=== PATIENT | female | born 2005 | race Caucasian/White ===

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

== ENCOUNTER 2024-05-24 12:03 | Emergency (ER) | payer OTHER, SELFPAY ==
--- NOTE | ~2024-05-24 | XR_ITS ---
HISTORY: pain, swelling, bruising COMPARISON: None TECHNIQUE: 2 views of the left toe were performed. FINDINGS: Acute avulsion fracture of the proximal phalanx of the fourth toe is present. This fracture extends into the articular surface. Soft tissue swelling is also appreciated. No additional acute fractures are noted. IMPRESSION: Avulsion fracture of the proximal phalanx of the fourth toe extending into the articular surface, as detailed above. Reviewed, dictated and finalized at location A. L GLUE OPERATOR IMPRESSION: Avulsion fracture of the proximal phalanx of the fourth toe extend ing into the articular surface, as detailed above.
--- OUTSIDE RECORDS SUMMARY | 2024-05-24 12:05 | XMS_ITS | Clinical Summary ---
Author Organization [facility] Address [facility] [place] [address] Care Team Providers Care Superintendent General Name Role Phone Ion Escobar MD Primary Care Provider [phone] Allergies No known active allergies Medications ondansetron 4 MG tablet Take 4 mg by mouth every 8 (eight) hours as needed for Nausea. Active Active Problems Estimated Date of Delivery Comme nts Yes 07/10/2021 No known active problems Social History Tobacco Use Types Packs/Day Years Used Date Smoking Tobacco: Never Smokeless Tobacco: Never Alcohol Use Standard Drinks/Week Comments Not Currently 0 (1 standard drink = 0.6 oz pur e alcohol) Estimated Date of Delivery Comme nts Yes 07/10/2021 Sex and Gender Information Value Date Recorded Sex Assigned at Not on file Legal Sex Female 2:45 PM CHAIN PEGGER Gender Identity Not on file Sexual Orientation Not on file Last Filed Vital Signs Vital Sign Reading Time Taken Comments Blood Pressure 110/64 02/17/2021 10:00 PM CHAIN PEGGER Pulse 96 02/17/2021 4:36 PM CHAIN PEGGER Temperature 37 C (98.6 F) 02/17/2021 4:36 PM CHAIN PEGGER Respiratory Rate 15 02/17/2021 10:00 PM CHAIN PEGGER Oxygen Saturation 98% 02/17/2021 10:00 PM CHAIN PEGGER Inhaled Oxygen Concentration - - Weight 53.5 kg (118 lb) 02/17/2021 4:36 PM CHAIN PEGGER Height 157.5 cm (5' 2 ) 02/17/2021 4:36 PM CHAIN PEGGER Body Mass Index 21.58 02/17/2021 4:36 PM CHAIN PEGGER Body Mass Index Percentile 61.00% 02/17/2021 4:3 6 PM CHAIN PEGGER Growth Chart: [facility] (Girls, 2- 20 Years) Plan of Treatment Health Maintenance Due Date Last Done Comments Annual Physical 08/25/2007 Meningococcal B Vaccine (1 of 2 - Standard) 2020 COVID-19 Vaccine (1 - 2023- season) 2023 Influenza Adult (#1) 2024 01/02/2018, 04/30/2017, 03/14/2016, Additional history exists DTaP, Tdap and Td Vaccines (7 - Td or Tdap) 09/06/2025 09/07/2015, 11/08/2008, 08/29/2006, Additional history exists RSV Immunization or 60+ Years (1 - 1-dose 75+ series) 08/25/2079 Hepatitis B Vaccines Completed 05/02/2005, 2004, 2004, Additional history exists Pneumococcal Vaccine: Pediatrics (0 to 5 Years) and At-Risk Patients (6 to 64 Years) Aged Out 11/28/2005, 05/02/2005, 2004, Additional history exists No longer eligible based on patient's age to complete this topic HPV Vaccines Completed 09/07/2015, 03/09, 01/28/2014 Meningococcal Vaccine Aged Out 09/07/2015 No jose may eligible based on patient's age to complete this topic Chlamydia Screening Females ages 16-24 Discontinued 11/18/2020 Hepatitis C Completed 12/19/2020, 12/19/2020 RSV Immunizations Under 20 Months Aged Out No longer eligible based on patient's age to complete this topic Insurance [employer] Care Teams Superintendent General Relationship Specialty Start Date End Date Ion Escobar MD PCP - General FAMILY PRACTICE 02/17/21
--- OUTSIDE RECORDS SUMMARY | 2024-05-24 12:05 | XMS_ITS | Clinical Summary ---
Author Organization [facility] [employer] Address [address] [place] [address] Care Team Providers Care Event Lighting Specialist Name Role Phone Ady Reynolds MD Primary Care Provider [phone] Source Comments [facility] [employer],non-owned Affiliates and Associated Physician Practices is amultiple site organization consisting of ambulatory clinics and hospital sitesin [place], [place], [place] and [place]. This disclosure is being madepursuant to the Care Everywhere program and may not contain all information available regarding this patient. Last updated 17.[facility] [employer] Allergies No known active allergies Medications * Be aware that medications may not be up to date on this document. Alwaysverify current medications with the patient. Medication Sig Dispensed Refills Start Date End Date Status naproxen (NAPROSYN) 500 MG tablet Take 1 tablet by mouth 2 times daily as needed for Pain 30 tablet 08/05/2017 Active Active Problems Problem Noted Date Diagnosed Date SGA (small for gestational a ge), , affecting care of mother, antepartum, third trimester, other fetus 05/29/2021 Supervision of normal first teen 05/29 Social History Tobacco Use Types Packs/Day Years Used Date Smoking Tobacco: Never Smokeless Tobacco: Never Alcohol Use Standard Drinks/Week Comments No 0 (1 standard drink = 0.6 oz pur e alcohol) Sex and Gender Information Value Date Recorded Sex Assigned at Not on file Gender Identity Not on file Sexual Orientation Not on file Last Filed Vital Signs Vital Sign Reading Time Taken Comments Blood Pressure 121/74 06/16/2021 10:24 AM BANDER AND 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 HELPER MACHINE Pulse 72 06/16/2021 10:24 AM BANDER AND CELLOPHANER HELPER MACHINE Temperature 36.6 C (97.8 F) 08/05/2017 8:15 PM CDT Respiratory Rate 18 08/05/2017 8:15 PM CDT Oxygen Saturation - - Inhaled Oxygen Concentration - - Weight 52 kg (114 lb 10.2 oz) 01/31/2018 1:31 PM CDT Height 156.2 cm (5' 1.5 ) 01/31/2018 1:31 PM CDT Body Mass Index 21.31 01/31/2018 1:31 PM CDT Body Mass Index Percentile 75.32% 01/31/2018 1:3 1 PM CDT Growth Chart: [facility] (Girls, 2- 20 Years) Plan of Treatment Health Maintenance Due Date Last Done Comments HIV SCREENING 08/25/2019 HPV VACCINE (1 - 3-dose series) 08/25/2019 CHLAMYDIA/GONORRHEA SCREENING 2020 MENINGOCOCCAL (Group B) VACCINE (1 of 2 - Standard) 2020 HEPATITIS C SCREENING 08/20/2022 DTAP/TDAP/TD VACCINES (1 - Tdap) 08/25/2023 HEPATITIS B VACCINE (1 of 3 - 19+ 3-dose series) 08/25/2023 COVID-19 VACCINE (1 - season) 2023 INFLUENZA VACCINE (#1) 2023 8, 04/30/2017, 03/14/2016, Additional history exists DEPRESSION SCREENING 04/08/2024 ZOSTER VACCINE (1 of 2) 2054 HIB VACCINE Aged Out No longer eligi ble based on patient's age to complete this topic MENINGOCOCCAL VACCINE Aged Out No jose may eligible based on patient's age to complete this topic PNEUMOCOCCAL VACCINE Aged Out No long er eligible based on patient's age to complete this topic Care Teams Event Lighting Specialist Relationship Specialty Start Date End Date Ady Reynolds MD [id number] [address] PCP - General Pediatrics 08/31/14
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
--- OUTSIDE RECORDS SUMMARY | 2024-05-24 12:06 | XMS_ITS | Clinical Summary ---
Author Organization [facility] Address [address] [place] [address] Phone Care Team Providers Care Electrode Turner And Finisher Name Role Phone Unavailable Primary Care Provider Unavailabl e Social History Tobacco Use Types Packs/Day Years Used Date Smoking Tobacco: Never Assessed Comments Unknown Sex and Gender Information Value Date Recorded Sex Assigned at Not on file Legal Sex Female 9:07 AM REAL ESTATE CLOSING COORDINATOR Gender Identity Not on file Sexual Orientation Not on file Plan of Treatment Health Maintenance Due Date Last Done Comments Hepatitis C Virus (HCV) Screening 2004 TdaP Immunization 2004 Human Papillomavirus (HPV) Immunization (1 - 3-dose series) 08/25/2019 Meningococcal B Immunization (1 of 2 - Standard) 2020 Hepatitis B Immunization (1 of 3 - 19+ 3-dose series) 08/25/2023 Influenza Immunization (#1) 2023 SARS-COV-2 Immunization ( - season) 2023 Respiratory Syncytial Virus (RSV) Immunization (Adult) (1 - 1-dose 75+ series) 08/25/2079 Meningococcal Immunization (ACWY) Aged Out No longer eligible based on patient's age to complete this topic Pneumococcal Immunization Combined Aged Out No longer eligible based on patient's age to complete this topic Rotavirus Immunization Aged Out No lo nger eligible based on patient's age to complete this topic
--- OUTSIDE RECORDS SUMMARY | 2024-05-24 12:06 | XMS_ITS | Patient Health Summary ---
Author Organization [facility] Address [address] [place] [address] Care Team Providers Care Brand Director Name Role Phone Ady Reynolds MD Primary Care Provider [phone] Note from [facility],non-owned Affiliates and Associated Physician Practices is amultiple site organization consisting of ambulatory clinics and hospital sitesin [place], [place] and [place]. This disclosure is being madepursuant to the Care Everywhere program and may not contain all information available regarding this patient. Last updated 17.[facility] Allergies No known active allergies Medications * Be aware that medications may not be up to date on this document. Alwaysverify current medications with the patient. * naproxen (NAPROSYN) 500 MG tablet(Started 08/05/2017) Take 1 tablet by mouth 2 times daily as needed for Pain Active Problems Problem Noted Date Diagnosed Date [...] Comments Blood Pressure 121/74 06/16/2021 10:24 AM IT TELECOM TECHNICIAN Pulse 72 06/16/2021 10:24 AM IT TELECOM TECHNICIAN Temperature 36.6 C (97.8 F) 08/05/2017 8:15 [...] 01/31/2018 1:3 1 PM CDT Growth Chart: [facility] (Girls, 2- 20 Years) Procedures * BIOPHYSICAL PROFILE W NST(Performed 06/12/2021) Performed for SGA (small for gestational age), , affecting care of mother, antepartum, third trimester, other fetus (HCC), Supervision of high-risk of young primigravida ([facility]) * BIOPHYSICAL PROFILE W NST(Performed 06/05/2021) Performed for SGA (small for gestational age), , affecting care of mother, antepartum, third trimester, other fetus ([facility]), Supervision of high-risk of young primigravida ([facility]) * SONOGRAM - COMPLETE(Performed 05/29/2021) Performed for Encounter for ultrasound to assess growth ([facility]), SGA (small for gestational age) ([facility]), Encounter for anatomic survey ([facility]) Results * BIOPHYSICAL PROFILE W NST (06/12/2021 2:33 PM IT TELECOM TECHNICIAN) Only the most recent of2 resultswithin the time period is included. Anatomical Region Laterality Modality Other 06/12/2021 2:33 PM IT TELECOM TECHNICIAN Narrative 06/12/2021 3:40 PM IT TELECOM TECHNICIAN MARLENE Zamora [facility] PHONE: FAX: Pat. Name: NIRMAL FENG. No: [id number] Study Date: 06/12/2021 2:33pm , Age: 05 2005, 15 Pregnancies: 1 Height: 61 in Weight: 114 lb LMP: Unknown GA by Base: 36w0d BEATRIZ: 07/10/2021 GA by US: 32w6d BEATRIZ: 08/01/2021 GA Selected: 36w0d (From Known E) BEATRIZ: 07/10/2021 Referring MD: Jacque Sanches MD Emt Driver: Yara Richards RDMS CPT4: 21801,[id number] BMI: 21.54 Hist/Ind: FGR Teen LR NIPT MEASUREMENTS & AGE GROWTH EVALUATION Measurement GA Range Srce %for GA Ratios ----- ---- ------- BPD 8.5 cm 34w3d (68t8e-28f6w) Hadl BPD 15% FL/BPD 0.69 (0.71 - 0.87* HC 31.5 cm 35w2d (74n0r-69c1m) Hadl HC 9% FL/AC 0.21 (0.20 - 0.24) AC 27.8 cm 31w6d (21t3p-35g7h) Hadl AC <01 HC/AC 1.13 (0.92 - 1.11* FL 5.9 cm 30w5d (33k3y-82n0i) Hadl FL <01 CI 0.77 (0.70 - 0.86) HL 5.3 cm 30w6d (64g5k-54o1o) Sebas HL <05 GA for sonogram 32w6d (99z7z-06n5o) Weight Estimate: based on (BPD,HC,AC,FL) Avg Weight: 1898 gm (1617-2179gm) Had : 4lbs, 2oz Normal: 2813 gm (2110-3516gm) Had Wt% <3 for 36w0d Heart Rate: 131 bpm Amniotic Fluid Index: 13.4cm (07.7-24.9) Q1: 5.9cm Q2: 2.7cm Q3: 1.9cm Q4: 2.9cm Biophysical Profile: 01/15 Breathin Tone: 2 NST: 2 Movement: 2 AFV: 2 EVAL, PLACENTA Presentation: cephalic Placenta: anterior Heart Rate: 131 bpm Amniotic Fluid Volume: normal DOPPLER Umbilical - Mid Cord S/D 2.65(1.64 - 3.51) PI 0.94 (0.58 - 1.16) Middle Cerebral Artery PSV 69.5cm/s PI 1.13 (1.39 - 2.52) * Med PSV 53.5cm/s MoM 1.30(<1.5) Anatomy!Normal!Abnormal!Suboptimal!Prev. Seen!Comments Cranium ! ! ! ! x ! Mdl (CSP/Thal! x ! ! ! ! Ventricles ! ! ! x ! ! Choroid Plexu! x ! ! ! ! Cerebellum ! ! ! x ! ! Cerebellar Ve! ! ! x ! ! Cisterna M. ! ! ! x ! ! Orbits ! ! ! ! x ! Profile ! x ! ! ! ! Nasal Bone ! x ! ! ! ! Lip ! x ! ! ! ! Maxilla ! ! ! ! x ! Mandible ! ! ! ! x ! Neck ! ! ! ! x ! Spine ! ! ! ! x ! Lungs ! ! ! ! x ! 4 Chamber Hea! ! ! ! x ! LVOT ! ! ! ! x ! RVOT ! ! ! ! x ! 3 Vessel View! ! ! ! x ! 3 Vessel Trac! ! ! ! x ! Cross-over ! ! ! ! x ! Ductal Arch ! ! ! ! x ! Aortic Arch ! ! ! ! x ! Caval View ! ! ! ! x ! Situs ! x ! ! ! x ! Diaphragm ! ! ! ! x ! Stomach ! x ! ! ! x ! Liver ! ! ! ! x ! Bowel ! ! ! ! x ! Kidneys ! x ! ! ! x ! Bladder ! x ! ! ! x ! 3 Vessel Cord! ! ! ! x ! Cord In! ! ! ! x ! Upper Extremi! ! ! ! x ! Hands ! ! ! x ! ! Lower Extremi! ! ! x ! ! Feet ! ! ! x ! ! External Francy! ! ! x ! ! Placental Cor! ! ! x ! ! CLINICAL SUMMARY Study Number: 3 The FHR baseline was 130 bpm during today's reactive NST. The FHR variability was moderate and no decelerations lasting more than 30 seconds were detected. IMPRESSION: 1) Tariq gestation, 36w0d 2) The accuracy of weight estimates is limited at / near term but, while today s biometry is again consistent with FGR, interval growth is apparent 3) The amniotic fluid volume is within normal limits 4) Umbilical Doppler waveforms reveal no evidence of increased arterial resistance but sensitivity is limited at this EGA and MCA Doppler waveforms reveal a PI <5th centile that is consistent with b rain sparing 5) Reassuring biophysical profile 6) No abnormalities have been detected on anatomic survey 7) Imaging of a portion of the anatomy (see table above) was again suboptimal, secondary to size and positioning NOTE: The patient was advised that ultrasound does not allow detection of all structural or chromosomal abnormalities. RECOMMEND: Close maternal movement monitoring while awaiting a repeat NST in 3-4 days then admission for delivery around 37 weeks (for suspected severe FGR with 'brain sparing') Thank you for allowing us the opportunity to care for your patient Justine Hatch MD <Electronic Signature> 06/12/2021 03:40pm Jacque Sanches MD [facility] ORDERABLES * SONOGRAM - COMPLETE (05/29/2021 8:20 AM IT TELECOM TECHNICIAN) Anatomical Region Laterality Modality Other 05/29/2021 8:20 AM IT TELECOM TECHNICIAN Narrative 05/29/2021 9:25 AM IT TELECOM TECHNICIAN MARLENE Zamora [facility] PHONE: FAX: Pat. Name: NIRMAL FENG Pat. No: [id number] Study Date: 05/29/2021 8:20am , Age: 05 2005, 15 Pregnancies: 1 Height: 61 in Weight: 114 lb LMP: Unknown GA by US: 31w6d BEATRIZ: 07/25/2021 GA Selected: 34w0d (From Known E) BEATRIZ: 07/10/2021 Referring MD: Jacque Sanches MD Emt Driver: Yara Richards RDMS CPT4: 88410,[id number] BMI: 21.54 Hist/Ind: SGA on Outside Scan Teen LR NIPT MEASUREMENTS & AGE GROWTH EVALUATION Measurement GA Range Srce %for GA Ratios ----- ---- ------- BPD 8.4 cm 33w5d (78h1h-28h0m) Hadl BPD 36% FL/BPD 0.68 (0.71 - 0.87* HC 30.5 cm 34w0d (36e3w-27h6g) Hadl HC 16% FL/AC 0.22 (0.20 - 0.24) AC 25.6 cm 29w5d (34x2a-02y0h) Hadl AC <01 HC/AC 1.19 (0.94 - 1.13* FL 5.7 cm 29w5d (93y1y-87l3o) Hadl FL <01 CI 0.79 (0.70 - 0.86) HL 5.2 cm 30w0d (26n8e-64x1a) Sebas HL <05 GA for sonogram 31w6d (45w0b-32r9z) Weight Estimate: based on (BPD,HC,AC,FL) Avg Weight: 1572 gm (1343-1802gm) Had : 3lbs, 7oz Normal: 2377 gm (1783-2971gm) Had Wt% <3 for 34w0d Heart Rate: 151 bpm Amniotic Fluid Index: 12.6cm (08.1-24.8) Q1: 4.8cm Q2: 2.1cm Q3: 2.4cm Q4: 3.2cm Biophysical Profile: 01/15 Breathin Tone: 2 NST: 2 Movement: 2 AFV: 2 EVAL, PLACENTA Presentation: cephalic Umbilical Cord: 3 Vessels Placenta: anterior Heart Rate: 151 bpm Amniotic Fluid Volume: normal DOPPLER Umbilical - Mid Cord S/D 3.02(1.73 - 3.68) PI 1.02 (0.62 - 1.20) Middle Cerebral Artery PSV 74.2cm/s PI 1.95 (1.53 - 2.74) Med PSV 48.8cm/s MoM 1.52(<1.5) Anatomy!Normal!Abnormal!Suboptimal!Prev. Seen!Comments Cranium ! x ! ! ! ! Mdl (CSP/Thal! ! ! x ! ! Ventricles ! ! ! x ! ! Choroid Plexu! ! ! x ! ! Cerebellum ! ! ! x ! ! Cerebellar Ve! ! ! x ! ! Cisterna M. ! ! ! x ! ! Nuchal Fold ! ! ! x ! ! Orbits ! x ! ! ! ! Profile ! ! ! x ! ! Nasal Bone ! ! ! x ! ! Lip ! ! ! x ! ! Maxilla ! x ! ! ! ! Mandible ! x ! ! ! ! Neck ! x ! ! ! ! Spine ! x ! ! ! ! Lungs ! x ! ! ! ! 4 Chamber Hea! x ! ! ! ! LVOT ! x ! ! ! ! RVOT ! x ! ! ! ! 3 Vessel View! x ! ! ! ! 3 Vessel Trac! x ! ! ! ! Cross-over ! x ! ! ! ! Ductal Arch ! x ! ! ! ! Aortic Arch ! x ! ! ! ! Caval View ! x ! ! ! ! Situs ! x ! ! ! ! Diaphragm ! x ! ! ! ! Stomach ! x ! ! ! ! Liver ! x ! ! ! ! Bowel ! x ! ! ! ! Kidneys ! x ! ! ! ! Bladder ! x ! ! ! ! 3 Vessel Cord! x ! ! ! ! Cord In! x ! ! ! ! Hands ! ! ! x ! ! Lower Extremi! ! ! x ! ! Feet ! ! ! x ! ! External Francy! ! ! x ! ! Placental Cor! ! ! x ! ! CLINICAL SUMMARY Study Number: 1 A single fetus is seen in cephalic presentation. The measurements today are consistent with less than expected size for the BEATRIZ provided. The BEATRIZ selected is based on a prior ultrasound. The amniotic fluid volume is within normal limits. The FHR baseline was 130 bpm during today's reactive NST. The FHR variability was moderate. IMPRESSION: Single, live intrauterine at 34w0d Amniotic fluid volume: Normal size is IUGR/SGA Biophysical profile: Reassuring Doppler studies: reveals no evidence of arterial resistance or cephalization RECOMMEND: Continue weekly NST/BPP testing and Doppler studies Repeat growth in 2 weeks Thank you for allowing us the opportunity to care for your patient Stewart Guerrero MD <Electronic Signature> 05/29/2021 09:25am Jacque FABIAN ORDERABLES Care Teams Brand Director Relationship Specialty Start Date End Date Ady Reynolds MD [address] [facility] [address] [place] [address] PCP - General Pediatrics 08/31/14
--- OUTSIDE RECORDS SUMMARY | 2024-05-24 12:06 | XMS_ITS | Referral Summary ---
Author Organization [facility] Address [address] [place] [address] Care Team Providers Care Avionics System Engineer Name Role Phone Ady Reynlods MD Primary Care Provider [phone] Source Comments [facility],non-owned Affiliates and Associated Physician Practices is amultiple site organization consisting of ambulatory clinics and hospital sitesin [place], [place], [place] and [place]. This disclosure is being madepursuant to the Care Everywhere program and may not contain all information available regarding this patient. Last updated 17.[facility] [employer] Allergies No known active allergies Medications * [...] Comments Blood Pressure 121/74 06/16/2021 10:24 AM PEANUT SHAKER Pulse 72 06/16/2021 10:24 AM PEANUT SHAKER Temperature 36.6 C (97.8 F) 08/05/2017 8:15 [...] 01/31/2018 1:3 1 PM CDT Growth Chart: [facility] (Girls, 2- 20 Years) Plan of Treatment Not on file Care Teams Avionics System Engineer Relationship Specialty Start Date End Date Ady Reynolds MD [address] [address] PCP - General Pediatrics 08/31/14
--- OUTSIDE RECORDS SUMMARY | 2024-05-24 12:07 | XMS_ITS | Continuity of Care Document ---
Author Organization [facility] Address [address] [place] [address] [place] [address] Phone Care Team Providers Care Dog Control Officer Name Role Phone oIn Escobar MD Unavailable Unavailable Allergies, Adverse Reactions, [...] Copied on Encounter OFFICE/OUTPA TIENT VISIT, EST [facility], [address], [place], [place], [id number], tel:[phone] [facility] neck pain1 (chief complaint) Cervicalgia 1 Shawn Lemon. [address], [place], [place], [address] , [place]. tel:[phone] Referring Provider: Ion Escobar, [address], [place], [place], [id number]. tel:[phone] OFFICE/OUTPA TIENT VISIT, [facility], [address], [place], [place], [address], tel:[phone] [facility] cough1 (chief complaint) Acute pharyngitisAcute upper respiratory infection, unspecified 1 Shawn Lemon. [address], [place], [place], [address] , [place]. [phone] Referring Provider: Molly Perkins [address], [place], [place], [address]. tel:[phone] PREV VISIT, EST, AGE 12-17 [facility], [address], [place], [place], [address], [place] tel:[phone] [facility] physical (chief complaint) Encounter for routine child health examination without abnormal findings 1 Shawn Lemon. [address], [place], [place], [address] , [place]. [phone] Referring Provider: Molly Perkins [address], [place], [place], [address]. tel:[phone] OFFICE/OUTPA TIENT VISIT, EST [facility], [address], [place], [place], [address], [place] tel:[phone] [facility] anxiety1 (chief complaint) insomnia1 (chief complaint) cough1 (chief complaint) Generalized Anxiety DisorderInsomniaAcu te upper respiratory infection, unspecified 0 Shawn Lemon. [address], [place], [place], [address] , [place]. tel:[phone] Referring Provider: Molly Perkins [address], [place], [place], [address]. tel:[phone] OFFICE/OUTPA TIENT VISIT, EST [facility], [address], [place], [place], [address], [place] tel:[phone] [facility] anxiety1 (chief complaint) fatigue1 (chief complaint) FatigueInsomniaGene ralized Anxiety Disorder 9 Shawn Lemon. [address], [place], [place], [address] , [place]. tel:[phone] Referring Provider: Molly Perkins [address], [place], [place], [address]. tel:[phone] PREV VISIT, NEW, AGE 12-17 [facility], [address], [place], [place], [address], tel:[phone] [facility] PHysical (chief complaint) Encntr for routine child health exam w/o abnormal findings 9 Shawn Lemon. [address] [facility] [address], [place], [place], [address] , [place]. tel:[phone] Referring Provider: Molly [address], [place], [place], [address]. tel:[phone] Family History Family Member Type Diagnosis Age At Onset Father Problem (finding) unknown Mother Problem (finding) of OD Brother Problem (finding) Alive and well Payers Payer name Insurance type Covered libertarian ID Authoriza tion(s) No Information Social History [...] Increase physical activity Relat ed to Fatigue Increase physical activity Relat ed to Encntr for routine child health exam w/o abnormal findings Weight management Related to Enc ntr for routine child health exam w/o abnormal findings Assessments Type Assessment Date assessment Cervicalgia Mental Status Date Cognitive Assessment Orientation - [place] ed to time, place, person, situation.
[2024-05-24 12:31] VITALS: BP 140/100; PULSE 76; RESP 18; TEMP 36.3; O2SAT 100
--- NOTE | 2024-05-24 13:17 | ED_ITS ---
HPI - Extremity Problem General Chief complaint: CADDYMASTER Stated complaint: LT Foot Toe Pain Source: patient Mode of arrival: ambulatory Limitations: no limitations History of Present Illness HPI Narrative: 18-year-old female presents to [facility] complaints of pain, swelling and bruising to her left 4th toe since yesterday when she fell on ice twisting her left 4th toe. Patient denies hitting her head at time of injury. Patient has been elevating her left foot as well as taking akst-qta-daexjgw Tylenol with minimal relief. Patient reports that she also started 1 week ago with vaginal odor and white colored discharge. Patient reports that she has had BV numerous times in the past and symptoms seem similar. Patient denies new sexual partners. Patient denies urinary symptoms. Patient denies concern for STDs. MD Complaint: extremity pain and extremity swelling Onset (ago): day(s) (1) Location: left and toe (4th) Radiation: none Relieving factors: elevation and rest Exacerbating factors: weight bearing, walking and palpation Related Data Allergies Allergy/AdvReac Type Severity Reaction Status Date / Time No Known Allergies Allergy Verified 05/24/24 13:02 Review of Systems Constitutional: Constitutional: Denies chills, Denies fatigue, Denies fever(s) and Denies weakness ENT: Denies epistaxis, Denies nasal congestion and Denies sore throat Cardiovascular: Cardiovascular: Denies chest pain Respiratory: Respiratory: Denies cough, Denies dyspnea and Denies wheezing Gastrointestinal: Gastrointestinal: Denies diarrhea, Denies nausea and Denies vomiting Genitourinary: Genitourinary: Denies abnormal vaginal bleeding, Denies hematuria, Denies nocturia, Denies genital lesions, Denies flank pain, Denies urinary incontinence and Reports vaginal discharge Comments: Vaginal odor Musculoskeletal: Musculoskeletal: Reports arthralgias and Reports joint swelling Comments: Left 4th toe pain, swelling, bruising Integumentary/Breasts: Skin/Breast: Denies erythema and Denies rash Neurologic: Denies dizziness, Denies syncope and Denies headache(s) [facility] Past Medical History Medical History IUP (intrauterine ), incidental No pertinent past medical history Surgical History Surgical History No pertinent past surgical history Family History Family History Mother No pertinent past medical history Social History Social History Smoking status: Never smoker Substance use: never Living arrangements: with family Gender identity (if verbalized by the patient): Female Sexual Orientation (if Verbalized by the Patient): Straight or Heterosexual Spiritual care concerns: No Comments At time of signature, I agree with nursing past medical, surgical, social and family history. There is no relevant family history pertinent to the presenting complaint. Exam Const: General: healthy appearing, no acute distress and alert Nutritional Appearance: well nourished Orientation/consciousness: patient oriented x3 Limitations: no limitations HENMT: Head: normal to inspection Eyes: Conjunctivae: conjunctivae normal Neck: Neck: normal visual inspection Resp: Effort & Inspection: normal respiratory effort and not labored Auscultation: clear to auscultation bilaterally, no crackles, no rales, no rhonc hi and no wheezes Cardio: Rate: regular rate Rhythm: regular rhythm Heart sounds: no murmurs : Other: Patient declines vaginal examination Back/Spine/Pelvis: Back: no CVA tenderness Skin: General skin exam: normal color Rashes: no rashes Neuro: General: patient oriented x3 and moves all extremities Cranial nerves: Yes Nystagmus not present Speech: normal speech Extrem: Other: Swelling and bruising noted to left 4th toe. There are no open wounds or erythema noted. Psych: Affect: normal affect Attitude: cooperative Course Course Level of Care: Express Care Visit Vital Signs Vital signs: Vital Signs Temperature 36.3 C L 05/24/24 12:31 Pulse Rate 76 05/24/24 12:31 Respiratory Rate 18 05/24/24 12:31 Blood Pressure 140/100 H 05/24/24 12:31 Pulse Oximetry 100 05/24/24 12:31 Oxygen Delivery Room Air 05/24/24 12:31 Temperature 36.3 C L 05/24/24 12:31 Pulse Rate 75 05/24/24 13:23 Respiratory Rate 18 05/24/24 12:31 Blood Pressure 159/111 H 05/24/24 13:23 Pulse Oximetry 100 05/24/24 12:31 Oxygen Delivery Room Air 05/24/24 12:31 MDM - Extremity (Nontraumatic) MDM Narrative Medical decision making narrative: Will treat patient with Flagyl due to vaginal symptoms and history of BV. Discuss toe x-ray results with patient. Left 4th toe will be cristi-taped and postop shoe applied to left foot. Patient agrees to call orthopedics tomorrow for an appointment. Work excuse provided for patient. Patient understands need to establish care with local primary care provider due to elevated blood pressure and family history of hypertension. Patient declines vaginal examination and denies need for STD test at this time. Differential Diagnosis Differential diagnosis: Likely cellulitis and lower extremity edema Imaging Data Radiologist's impression: Patient: Mounika Oviedo : 2005 MR#: [id number] Age: 18 Acct:[id number] Loc: [facility] ADM Date: 05/24/[address]: Ordering Physician: Lisa Corral APRN Date of Service: 05/24/24 Procedure(s): XR toe 4th LT min 2V Accession Number(s): [id number] cc: Lisa Corral APRN; CONCRETE PIPE MAKING MACHINE OPERATOR PHYSICIAN~ HISTORY: pain, swelling, bruising COMPARISON: None TECHNIQUE: 2 views of the left toe were performed. FINDINGS: Acute avulsion fracture of the proximal phalanx of the fourth toe is present. This fracture extends into the articular surface. Soft tissue swelling is also appreciated. No additional acute fractures are noted. IMPRESSION: Avulsion fracture of the proximal phalanx of the fourth toe extending into the articular surface, as detailed above. Reviewed, dictated and finalized at location A. PRESS OPERATOR Please be advised this is a medical document. It is intended for ebjn-nk-vmly communication. It is written in medical language and may contain unfamiliar abbreviations or verbiage. Medical documents are intended to carry relevant information, facts as evident, and the clinical opinion of the practitioner at the time of the encounter. This report may have been done utilizing a voice recognition system. Attempts have been made to correct errors. However, there may be uncorrected grammatical, spelling, and recognition errors present. The file time of this note does not necessarily represent the time of service. Dictated By: Gayla Veloz MD 05/24/24 1332 Signed By: <Electronically signed by Gayla Veloz MD in OV> 05/24/24 1334 Critical Care Time Critical Care Time Critical Care Time: No Discharge Plan Discharge Clinical Impression: Vaginal discharge Fracture of toe, closed Qualifiers: Encounter type: initial encounter Toe: lesser toe Phalanx: proximal Physeal involvement: involving physis Salter-Harrison Fracture Type: unspecified configuration Laterality: left Qualified Code(s): S99.202A - Unspecified physeal fracture of phalanx of left toe, initial encounter for closed fracture Patient Disposition: Home, Self-Care Condition: Stable Instructions: Antibiotic Form, Vaginal Discharge (ED) Additional Instructions: Elevated left foot apply cool compress to her pain Alternate Motrin and Tylenol as needed Take Flagyl as prescribed; do not drink alcohol while taking Flagyl Establish care with local primary care provider to follow-up on elevated blood pressure Proceed to the emergency room if symptoms worsen or if you develop chest pain, shortness of breath, dizziness or headache. Call and schedule appointment with Dr Knapp to follow-up on toe fracture Patient Language: [place] Prescriptions: New metronidazole 500 mg tablet 500 mg PO Q12H 7 Days Qty: 14 0RF Follow-up/Referrals: PHYSICIAN,CONCRETE PIPE MAKING MACHINE OPERATOR [Primary Care Provider] - Isaiah Knapp MD [Physician] - Stand Alone Forms: Work/School Release IP Time of Disposition: 13:48
[2024-05-24 13:23] VITALS: BP 159/111; PULSE 75
== END 2024-05-24 13:55 | disposition home or self-care (01) ==
PROVIDERS: Emergency Provider Nurse Practitioner Family
DX: N89.8 Other specified noninflammatory disorders of vagina (principal); S99.202A Unspecified physeal fracture of phalanx of left toe, initial encounter for closed fracture; W00.9XXA Unspecified fall due to ice and snow, initial encounter
CPT/HCPCS: 73660; 99214; G0463

== ENCOUNTER 2024-06-11 16:36 | Outpatient (CLI) | payer OTHER, SELFPAY ==
--- OUTSIDE RECORDS SUMMARY | 2024-06-11 17:05 | XMS_ITS | Clinical Summary ---
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
--- OUTSIDE RECORDS SUMMARY | 2024-06-11 17:05 | XMS_ITS | Patient Health Summary ---
Author Organization [facility] Address [address] [place] [place] [address] Care Team Providers Care Director Of Maintenance Name Role Phone Ady Reynolds MD Primary Care Provider [phone] Note from [facility],non-owned Affiliates and Associated Physician Practices is amultiple site organization consisting of ambulatory clinics and hospital sitesin [place], [place], [place] and [place]. This disclosure is being madepursuant to the Care Everywhere program and may not contain all information available regarding this patient. Last updated 17.[facility] Allergies No known active allergies Medications * [...] Comments Blood Pressure 121/74 06/16/2021 10:24 AM BULB GROWER Pulse 72 06/16/2021 10:24 AM BULB GROWER Temperature 36.6 C (97.8 F) 08/05/2017 8:15 [...] 01/31/2018 1:3 1 PM CDT Growth Chart: [facility] (Girls, 2- 20 Years) Procedures * BIOPHYSICAL PROFILE W NST(Performed 06/12/2021) Performed for SGA (small for gestational age), , affecting care of mother, antepartum, third trimester, other fetus (HCC), Supervision of high-risk of young primigravida ([facility]) * BIOPHYSICAL PROFILE W NST(Performed 06/05/2021) Performed for SGA (small for gestational age), , affecting care of mother, antepartum, third trimester, other fetus ([facility]), Supervision of high-risk of young primigravida ([facility]) * SONOGRAM - COMPLETE(Performed 05/29/2021) Performed for Encounter for ultrasound to assess growth ([facility]), SGA (small for gestational age) ([facility]), Encounter for anatomic survey ([facility]) Results * BIOPHYSICAL PROFILE W NST (06/12/2021 2:33 PM BULB GROWER) Only the most recent of2 resultswithin the time period is included. Anatomical Region Laterality Modality Other 06/12/2021 2:33 PM BULB GROWER Narrative 06/12/2021 3:40 PM BULB GROWER [facility] PHONE: FAX: Pat. Name: NIRMAL FENG. No: [id number] Study Date: 06/12/2021 2:33pm , Age: 05 2005, 15 Pregnancies: 1 Height: 61 in Weight: 114 lb LMP: Unknown GA by Base: 36w0d BEATRIZ: 07/10/2021 GA by US: 32w6d BEATRIZ: 08/01/2021 GA Selected: 36w0d (From Known E) BEATRIZ: 07/10/2021 Referring MD: Jacque Sanches MD Adjunct Latin Professor: Yara Richards RDMS CPT4: [id number] BMI: 21.54 Hist/Ind: FGR Teen LR NIPT MEASUREMENTS & AGE GROWTH EVALUATION Measurement GA Range Srce %for GA Ratios ----- ---- ------- BPD 8.5 cm 34w3d (14d4j-86d3v) Hadl BPD 15% FL/BPD 0.69 (0.71 - 0.87* HC 31.5 cm 35w2d (58p8s-33g7q) Hadl HC 9% FL/AC 0.21 (0.20 - 0.24) AC 27.8 cm 31w6d (22y5g-71u9k) Hadl AC <01 HC/AC 1.13 (0.92 - 1.11* FL 5.9 cm 30w5d (13w8j-85p6x) Hadl FL <01 CI 0.77 (0.70 - 0.86) HL 5.3 cm 30w6d (73k0b-03v0h) Sebas HL <05 GA for sonogram 32w6d (87v7y-92p4z) Weight Estimate: based on (BPD,HC,AC,FL) Avg Weight: [...] <Electronic Signature> 06/12/2021 03:40pm Jacque Sanches MD [facility] ORDERABLES * SONOGRAM - COMPLETE (05/29/2021 8:20 AM BULB GROWER) Anatomical Region Laterality Modality Other 05/29/2021 8:20 AM BULB GROWER Narrative 05/29/2021 9:25 AM BULB GROWER [facility] PHONE: FAX: Pat. Name: NIRMAL FENG Pat. No: [id number] Study Date: 05/29/2021 8:20am , Age: 05 2005, 15 Pregnancies: 1 Height: 61 in Weight: 114 lb LMP: Unknown GA by US: 31w6d BEATRIZ: 07/25/2021 GA Selected: 34w0d (From Known E) BEATRIZ: 07/10/2021 Referring MD: Jacque Sanches MD Adjunct Latin Professor: Yara Richards RDMS CPT4: [id number] BMI: 21.54 Hist/Ind: SGA on Outside Scan Teen LR NIPT MEASUREMENTS & AGE GROWTH EVALUATION Measurement GA Range Srce %for GA Ratios ----- ---- ------- BPD 8.4 cm 33w5d (75y6d-41h6l) Hadl BPD 36% FL/BPD 0.68 (0.71 - 0.87* HC 30.5 cm 34w0d (48m5d-79i6b) Hadl HC 16% FL/AC 0.22 (0.20 - 0.24) AC 25.6 cm 29w5d (41w5v-24j8g) Hadl AC <01 HC/AC 1.19 (0.94 - 1.13* FL 5.7 cm 29w5d (71z6n-97v2y) Hadl FL <01 CI 0.79 (0.70 - 0.86) HL 5.2 cm 30w0d (64o1y-31b3a) Sebas HL <05 GA for sonogram 31w6d (48v7s-00s4z) Weight Estimate: based on (BPD,HC,AC,FL) Avg Weight: [...] 05/29/2021 09:25am Jacque FABIAN ORDERABLES Care Teams Director Of Maintenance Relationship Specialty Start Date End Date Ady Reynolds MD [address] [place] [address] PCP - General Pediatrics 08/31/14
--- OUTSIDE RECORDS SUMMARY | 2024-06-11 17:05 | XMS_ITS | Clinical Summary ---
Author Organization [facility] Address [facility] [place] [address] Care Team Providers Care Spring Up Supervisor Name Role Phone Ion Escobar MD Primary Care Provider [phone] Allergies No known active allergies Medications ondansetron [...] on file Legal Sex Female 2:45 PM RELEASE SPECIALIST Gender Identity Not on file Sexual Orientation Not on file Last Filed Vital Signs Vital Sign Reading Time Taken Comments Blood Pressure 110/64 02/17/2021 10:00 PM RELEASE SPECIALIST Pulse 96 02/17/2021 4:36 PM RELEASE SPECIALIST Temperature 37 C (98.6 F) 02/17/2021 4:36 PM RELEASE SPECIALIST Respiratory Rate 15 02/17/2021 10:00 PM RELEASE SPECIALIST Oxygen Saturation 98% 02/17/2021 10:00 PM RELEASE SPECIALIST Inhaled Oxygen Concentration - - Weight 53.5 kg (118 lb) 02/17/2021 4:36 PM RELEASE SPECIALIST Height 157.5 cm (5' 2 ) 02/17/2021 4:36 PM RELEASE SPECIALIST Body Mass Index 21.58 02/17/2021 4:36 PM RELEASE SPECIALIST Body Mass Index Percentile 61.00% 02/17/2021 4:3 6 PM RELEASE SPECIALIST Growth Chart: [facility] (Girls, 2- 20 Years) Plan of Treatment [...] complete this topic Insurance [employer] Care Teams Spring Up Supervisor Relationship Specialty Start Date End Date Ion Escobar MD PCP - General FAMILY PRACTICE 02/17/21
--- OUTSIDE RECORDS SUMMARY | 2024-06-11 17:05 | XMS_ITS | Referral Summary ---
Author Organization [facility] Address [address] [place] [address] Care Team Providers Care Mint Machine Operator Name Role Phone Ady Reynolds MD Primary Care Provider [phone] Source Comments [facility],non-owned Affiliates and Associated Physician Practices is amultiple site organization consisting of ambulatory clinics and hospital sitesin [place], [place], [place] and [place]. This disclosure is being madepursuant to the Care Everywhere program and may not contain all information available regarding this patient. Last updated 17.[facility] [employer] Allergies No known active allergies Medications * [...] Comments Blood Pressure 121/74 06/16/2021 10:24 AM AMUSEMENT PARK WORKER Pulse 72 06/16/2021 10:24 AM AMUSEMENT PARK WORKER Temperature 36.6 C (97.8 F) 08/05/2017 8:15 [...] 1:3 1 PM CDT Growth Chart: [facility] (Girls, 2- 20 Years) Plan of Treatment Not on file Care Teams Mint Machine Operator Relationship Specialty Start Date End Date Ady Reynolds MD [address] [address] PCP - General Pediatrics 08/31/14
--- OUTSIDE RECORDS SUMMARY | 2024-06-11 17:05 | XMS_ITS | Clinical Summary ---
Author Organization [facility] Address [address] [place] [address] Care Team Providers Care Telephoto Installer Name Role Phone Ady Reynolds MD Primary Care Provider [phone] Source Comments [facility] [employer],non-owned Affiliates and Associated Physician Practices is amultiple site organization consisting of ambulatory clinics and hospital sitesin [place], [place], [place] and [place]. This disclosure is being madepursuant to the Care Everywhere program and may not contain all information available regarding this patient. Last updated 17.[facility] [employer] Allergies No known active allergies Medications * [...] Comments Blood Pressure 121/74 06/16/2021 10:24 AM GENERAL PRODUCTION MANAGER Pulse 72 06/16/2021 10:24 AM GENERAL PRODUCTION MANAGER Temperature 36.6 C (97.8 F) 08/05/2017 8:15 [...] 01/31/2018 1:3 1 PM CDT Growth Chart: [facility] (Girls, 2- 20 Years) Plan of [...] age to complete this topic Care Teams Telephoto Installer Relationship Specialty Start Date End Date Ady Reynolds MD [address] [address] PCP - General Pediatrics 08/31/14
--- OUTSIDE RECORDS SUMMARY | 2024-06-11 17:05 | XMS_ITS | Continuity of Care Document ---
Author Organization [facility] Address [address] [place] [address] [place] [address] Phone Care Team Providers Care Wood Tool Maker Name Role Phone Ion Escobar MD Unavailable [...] Copied on Encounter OFFICE/OUTPA TIENT VISIT, EST [facility], [address], [place], [place], [address], tel:[phone] [facility] neck pain1 (chief complaint) Cervicalgia 1 Shawn Lemon. [address], [place], [place], [address] , [place]. tel:[phone] Referring Provider: Ion Escobar, [address], [place], [place], [address]. tel:[phone] OFFICE/OUTPA TIENT VISIT, [facility], [address], [place], [place], [address], tel:[phone] [facility] cough1 (chief complaint) Acute pharyngitisAcute upper respiratory infection, unspecified 1 Shawn Lemon. [address], [place], [place], [address] , [place]. [phone] Referring Provider: Molly Perkins [address], [place], [place], [address]. tel:[phone] PREV VISIT, EST, AGE 12-17 [facility], [address], [place], [place], [address], [place] tel:[phone] [facility] Medicine physical (chief complaint) Encounter for routine child health examination without abnormal findings 1 Shawn Lemon. [address], [place], [place], [address] , [place]. [phone] Referring Provider: Molly Perkins [address], [place], [place], [address]. tel:[phone] OFFICE/OUTPA TIENT VISIT, EST [facility], [address], [place], [place], [address], [place] tel:[phone] [facility] anxiety1 (chief complaint) insomnia1 (chief complaint) cough1 (chief complaint) Generalized Anxiety DisorderInsomniaAcu te upper respiratory infection, unspecified 0 Shawn Lemon. [address], [place], [place], [address] , [place]. tel:[phone] Referring Provider: Molly Perknis [address], [place], [place], [address]. tel:[phone] OFFICE/OUTPA TIENT VISIT, EST [facility], [address], [place], [place], [address], [place] tel:[phone] [facility] anxiety1 (chief complaint) fatigue1 (chief complaint) FatigueInsomniaGene ralized Anxiety Disorder 9 Shawn Lemon. [address], [place], [place], [address] , [place]. tel:[phone] Referring Provider: Molly Perkins [address], [place], [place], [address]. tel:[phone] PREV VISIT, NEW, AGE 12-17 [facility], [address] [place], [place], [place], [address], tel:[phone] [facility] Medicine PHysical (chief complaint) Encntr for routine child health exam w/o abnormal findings 9 Shawn Lemon. [address], [facility] [address], [place], [place], [address] , [place]. tel:[phone] Referring Provider: Molly [address], [place], [place], [address]. tel:[phone] Family History Family Member Type Diagnosis Age [...] Mental Status Date Cognitive Assessment Orientation - [place] ed to time, place, person, situation.
[2024-06-11 17:09] LABS: Basophils Percent Auto 0.3 % (0.2-1.2); Eosinophils Percent Auto 0.1 % (0-4.4); Hematocrit 40.6 % (37.0-47.0); Hemoglobin 13.6 g/dL (12.0-15.0); Immature Granulocyte Absolute 0.04 K/mm3 (0.00-0.031); Immature Granulocyte Percent A 0.4 % (0-0.5); Lymphocytes Absolute Auto 1.25 K/mm3 (0.9-3.2); Mean Corpuscular HGB Conc 33.5 g/dl (32-36); Mean Corpuscular Hemoglobin 32.9 pg (26-34); Mean Corpuscular Volume 98.3 fl (80-100); Monocytes Absolute Auto 0.5 K/mm3 (0.1-0.6); Monocytes Percent Auto 5.6 % (2.6-8.5); Neutrophils Absolute Auto 7.1 K/mm3 (1.3-6.7); Neutrophils Percent Auto 79.6 % (45.5-73.1); Platelet Count Result 288 k/mm3 (150-375); Red Blood Count 4.13 M/mm3 (4.2-5.4); Red Cell Distribution Width 12.6 % (11.5-14.5); White Blood Count 8.9 K/mm3 (4.5-10.0)
[2024-06-11 17:11] LABS: Alanine Aminotransferase 26 U/L (6-35); Albumin Level 4.9 g/dL (3.7-5.6); Alkaline Phosphatase 85 U/L (45-116); Anion Gap 11 mmol/L (4-12); Aspartate Amino Transferase 26 U/L (14-36); Bilirubin,Total 0.7 mg/dL (0.2-1.3); Blood Urea Nitrogen 7 mg/dL (8-21); Carbon Dioxide 26 mmol/L (22-30); Chloride 101 mmol/L (98-107); Cholesterol 201 mg/dL (0-200); Estimated Glomerular Filt Rate > 60; Glucose 101 mg/dL (65-110); HDL Direct 107 mg/dL; Potassium 4.6 mmol/L (3.4-5.0); Sodium 138 mmol/L (134-143); Triglycerides 124 mg/dL (<150)
[2024-06-11 17:22] LABS: LDL Cholesterol Direct 83 mg/dL
== END 2024-06-11 16:37 | disposition home or self-care (01) ==
LOC: ANHLAB 16:37
PROVIDERS: PCP Nurse Practitioner Family; Visit Provider Nurse Practitioner Family
DX: D64.9 Anemia, unspecified (principal); I10 Essential (primary) hypertension; Z13.220 Encounter for screening for lipoid disorders
CPT/HCPCS: 36415; 80053; 80061; 84443; 85025

== ENCOUNTER 2024-11-03 14:46 | Emergency (ER) | payer OTHER, SELFPAY ==
--- NOTE | ~2024-11-03 | XR_ITS ---
HISTORY: nail avulsion 4TH DIGIT COMPARISON: None TECHNIQUE: 2 views of the right fourth digit FINDINGS: No acute or subacute fracture. Joint spaces are preserved and alignment is maintained. Soft tissues are unremarkable without radiopaque foreign body or significant calcification. Age-appropriate mineralization. IMPRESSION: No acute fracture or dislocation. Reviewed, dictated and finalized at location A.
[2024-11-03 14:48] VITALS: BP 139/91; PULSE 125; RESP 18; TEMP 36.6; O2SAT 97
--- OUTSIDE RECORDS SUMMARY | 2024-11-03 14:52 | XMS_ITS | Clinical Summary ---
Author Organization [facility] Address [address] [place] [address] Care Team Providers Care Milking Worker Name Role Phone Ion Escobar MD Primary Care Provider Allergies No known active allergies Medications ondansetron [...] on file Legal Sex Female 2:45 PM SOLAR PHOTOVOLTAIC SYSTEMS ENGINEER Gender Identity Not on file Sexual Orientation Not on file Last Filed Vital Signs Vital Sign Reading Time Taken Comments Blood Pressure 110/64 02/17/2021 10:00 PM SOLAR PHOTOVOLTAIC SYSTEMS ENGINEER Pulse 96 02/17/2021 4:36 PM SOLAR PHOTOVOLTAIC SYSTEMS ENGINEER Temperature 37 C (98.6 F) 02/17/2021 4:36 PM SOLAR PHOTOVOLTAIC SYSTEMS ENGINEER Respiratory Rate 15 02/17/2021 10:00 PM SOLAR PHOTOVOLTAIC SYSTEMS ENGINEER Oxygen Saturation 98% 02/17/2021 10:00 PM SOLAR PHOTOVOLTAIC SYSTEMS ENGINEER Inhaled Oxygen Concentration - - Weight 53.5 kg (118 lb) 02/17/2021 4:36 PM SOLAR PHOTOVOLTAIC SYSTEMS ENGINEER Height 157.5 cm (5' 2) 02/17/2021 4:36 PM SOLAR PHOTOVOLTAIC SYSTEMS ENGINEER Body Mass Index 21.58 02/17/2021 4:36 PM SOLAR PHOTOVOLTAIC SYSTEMS ENGINEER Plan of Treatment Health Maintenance Due Date Last Done Comments Annual Physical 08/25/2007 Meningococcal B Vaccine (1 of 2 - Standard) 2020 COVID-19 Vaccine ( season) 2023 DTaP, Tdap and Td Vaccines (7 - Td or Tdap) 09/06/2025 09/07/2015, 11/08/2008, 08/29/2006, Additional history exists RSV Immunization or 60+ Years (1 - 1-dose 75+ series) 08/25/2079 Hepatitis B Vaccines Completed 05/02/2005, 2004, 2004, Additional history exists Pneumococcal Vaccine: Pediatrics (0 to 5 Years) and At-Risk Patients (6 to 49 Years) Aged Out 11/28/2005, 05/02/2005, 2004, Additional [...] complete this topic Insurance [employer] Care Teams Milking Worker Relationship Specialty Start Date End Date Ion Escobar MD PCP - General FAMILY PRACTICE 02/17/21
--- OUTSIDE RECORDS SUMMARY | 2024-11-03 14:52 | XMS_ITS | Data Portability ---
Author Organization [place] - [facility] [place] Address [address] [place] [address] Assessment No assessment recorded. Plan of Treatment Reminders Order Date Submit Date Provider Last Modified By Organization Details Last Modified Time Details Appointments None recorded. Lab culture, urine 2024 025 [facility] (Lab), [address], [place], [address], 22:48:50 urinalysis, dipstick 2024 025 [email or web address] [place], [address], [place], [address], 13:07:59 unlisted lab - women's health swab plus, GLENNA 2024 025 [facility] (Lab), [address], [place], [address], 22:48:50 test, urine 2024 025 [email or web address] [facility], [place], [address], 14:48:43 test, urine 2023 024 [email or web address] [facility], [address], [place], [address], 11:06:39 Referral None recorded. Procedures None recorded. Surgeries None recorded. Imaging None recorded. Medication Orders fluconazole 150 mg tablet 2024 025 [id number], [address], [place], [place], [id number], 13:05:09 metronidazo le 500 mg tablet [address] [facility][id number], [address], [place], [place], [id number], 12:57:18 metronidazo le 500 mg tablet [address] [facility][id number], [address], [place], [place], [id number], 12:57:18 Patient TargetsNo targets recorded. Patient Instructions Encounter Date Encounter Id Patient Instructions Last Modified By Organization Details Last Modified Time 01/09/2024 [id number] high blood pressure: care instructions [email or web address] Not available 01/09/2024 11:17:31 Reason for Referral None Reported. Results Created Date Observation Date Name Description Value Unit Range Abnormal Flag Note LastModifiedBy Organization Detail LastModifiedTime 07/03/1907/03/2023 VAGIN ITIS/ VAGIN OSIS, DNA PROBE maria isabel sp. detection, direct probe Negati ve negati ve Not Available [facility] (Lab) [address] [place], [address], 07/04/2023 15:58:59 07/03/19 24 07/03/2023 VAGIN ITIS/ VAGIN OSIS, DNA PROBE gardnerella vag. detection, direct probe Positi ve negati ve abnormal Not Available [facility] (Lab) [address] [place], [address], 07/04/2023 15:58:59 07/03/19 24 07/03/2023 VAGIN ITIS/ VAGIN OSIS, DNA PROBE trichomonas vag. detection, direct probe Negati ve negati ve Not Available [facility] (Lab) [address] [facility], [place], [address], 07/04/2023 15:58:59 07/03/19 24 07/03/2023 CT/GC AND TRICH OMONA S VAGIN ANDREW (RRNA ), SWAB chlamydia trachomatis, PCR Positi ve negati ve abnormal Posit junito: Prese nce of C. trach omati s (by YONG) Chlam ydia trach omati s RNA detec giacomo by PCR. Not Available [facility] (Lab) [address] [facility], [place], [address], 07/04/2023 15:59:00 07/03/19 24 07/03/2023 CT/GC AND TRICH OMONA S VAGIN ANDREW (RRNA ), SWAB neisseria gonorrhoeae, PCR Negati ve negati ve Not Available [facility] (Lab) [address] [facility], [place], [address], 07/04/2023 15:59:00 07/03/19 24 07/03/2023 CT/GC AND TRICH OMONA S VAGIN ANDREW (RRNA ), SWAB trichomonas vaginalis ribosomal RNA (rrna) Negati ve negati ve Colle cted by [facility] staff . Not Available [facility] (Lab) [address] [facility], [place], [address], 07/04/2023 15:59:00 08/22/19 24 08/22/2023 CT/GC AND TRICH OMONA S VAGIN ANDREW (RRNA ), URINE chlamydia trachomatis, PCR Negati ve negati ve Not Available [facility] (Lab) [address] [facility], [place], [address], 08/23/2023 13:23:44 08/22/19 24 08/22/2023 CT/GC AND TRICH OMONA S VAGIN ANDREW (RRNA ), URINE neisseria gonorrhoeae, PCR Negati ve negati ve Not Available [facility] (Lab) [address] [facility], [place], [address], 08/23/2023 13:23:44 08/22/19 24 08/22/2023 CT/GC AND TRICH OMONA S VAGIN ANDREW (RRNA ), URINE trichomonas vaginalis ribosomal RNA (rrna) Negati ve negati ve Not Available [facility] (Lab) [address] [facility], [place], [address], 08/23/2023 13:23:44 01/09/20 24 01/09/2024 WOMEN 'S HEALT H SWAB PLUS, GLEN[place] bacterial vaginosis (bv), tma Positi ve negati ve abnormal Not Available [facility] (Lab) [address] [facility], [place], [address], 01/11/2024 11:18:04 01/09/20 24 01/09/2024 WOMEN 'S HEALT H SWAB PLUS, GLENNA maria isabel species, tma Negati ve negati ve Not Available [facility] (Lab) [address] [facility], [place], [address], 01/11/2024 11:18:04 01/09/20 24 01/09/2024 WOMEN 'S HEALT H SWAB PLUS, [place] maria isabel glabrata, tma Negati ve negati ve Not Available [facility] (Lab) [address] [facility], [place], [address], 01/11/2024 11:18:04 01/09/20 24 01/09/2024 WOMEN 'S HEALT H SWAB PLUS, [place] trichomonas vaginalis, tma Negati ve negati ve Not Available [facility] (Lab) [address] [facility], [place], [address], 01/11/2024 11:18:04 01/09/20 24 01/09/2024 WOMEN 'S HEALT H SWAB PLUS, [place] chlamydia trachomatis, PCR Negati ve negati ve Not Available [facility] (Lab) [address] [facility], [place], [address], 01/11/2024 11:18:04 01/09/20 24 01/09/2024 WOMEN 'S HEALT H SWAB PLUS, [place] neisseria gonorrhoeae, PCR Negati ve negati ve Bacte rial vagin osis detec ts the follo wing bacte cady assoc iated with bacte rial vagin osis (BV): Lacto bacil jordy (L. gasse ri, L. crisp atus and L. jense ahsan), Gardn erell a vagin andrew, and Atopo bium vagin ae. A singl e quali tativ e resul t is repor giacomo base on instr ument softw are to deter mine BV posit junito or negat junito statu s. The [facility] speci es group tests for C. albic ans, C. tropi calis , C. parap fabian is, C. dubli niens is. Testi ng is perfo rmed using the Trans cript ion Media giacomo Ampli ficat ion metho d. Tests for [facility] da glabr jeff, Trich omona s vagin andrew, Chlam ydia trach omati s, and Neiss eria gonor rhoea e are also inclu ded in this panel . Not Available [facility] (Lab) [address] [place], [address], 01/11/2024 11:18:04 01/09/20 24 01/09/2024 pregn alexandria test, urine HCG negati ve Not Available [place] [address], [place], [address], 01/09/2024 10:59:53 09/02/19 25 09/01/2024 WOMEN 'S HEALT H SWAB PLUS, [place] bacterial vaginosis (bv), tma Positi ve negati ve abnormal Not Available [facility] (Lab) [address] [place], [address], 09/02/2024 22:48:50 09/02/19 25 09/01/2024 WOMEN 'S HEALT H SWAB PLUS, GL[place] maria isabel species, tma Negati ve negati ve Not Available [facility] (Lab) [address] [place], [address], 09/02/2024 22:48:50 09/02/19 25 09/01/2024 WOMEN 'S HEALT H SWAB PLUS, GLENNA maria isabel glabrata, tma Negati ve negati ve Not Available [facility] (Lab) [address] [place], [address], 09/02/2024 22:48:50 09/02/19 25 09/01/2024 WOMEN 'S HEALT H SWAB PLUS, [place] trichomonas vaginalis, tma Negati ve negati ve Not Available [facility] (Lab) [address] [facility], [place], [address], 09/02/2024 22:48:50 09/02/19 25 09/01/2024 [facility], GL[place]NA chlamydia trachomatis, PCR Negati ve negati ve Not Available [facility] (Lab) [address] [place], [address], 09/02/2024 22:48:50 09/02/19 25 09/01/2024 [facility], [place] neisseria gonorrhoeae, PCR Negati ve negati ve Bacte rial vagin osis detec ts the follo wing bacte cady assoc iated with bacte rial vagin osis (BV): Lacto bacil jordy (L. gasse ri, L. crisp atus and L. jense ahsan), Gardn erell a vagin andrew, and Atopo bium vagin ae. A singl e quali tativ e resul t is repor giacomo base on instr ument softw are to deter mine BV posit junito or negat junito statu s. The [facility] speci es group tests for C. albic ans, C. tropi calis , C. parap fabian is, C. dubli niens is. Testi ng is perfo rmed using the Trans cript ion Media giacomo Ampli ficat ion metho d. Tests for Sanjuana da glabr jeff, Trich omona s vagin andrew, Chlam ydia trach omati s, and Neiss eria gonor rhoea e are also inclu ded in this panel . Not Available [facility] (Lab) [address] [place], [address], 09/02/2024 22:48:50 09/02/19 25 09/01/2024 CULTU RE: URINE result report SEE RESULT S BELOW Test: Cultu re: Urine Speci men Sourc e: Urine - Clean Catch Speci men Type: Urine Speci men Date: 2024 1314 Resul t Date: 20244 Resul t Statu s: Final resul t Abnor mal: No Resul ting Lab: [facility] [address] [facility] [address] Tel: CULTU RE ----- ----- ----- --- No growt h in 1 day (dete ction level of 10,00 0 colon ies / ml.) Not Available [facility] (Lab) [address], [place], [address], 09/02/2024 22:48:50 09/02/19 25 09/01/2024 pregn alexandria test, urine HCG negati ve Not Available [facility] [address], [place], [address], 09/01/2024 14:47:59 09/02/19 25 09/01/2024 urina lysis , dipst ick Leukocytes ++ Not Available Alicja benedict [address], [place], [address], 09/01/2024 13:07:22 09/02/19 25 09/01/2024 urina lysis , dipst ick Nitrite - Not Available [facility] [address], [place], [address], 09/01/2024 13:07:22 09/02/19 25 09/01/2024 urina lysis , dipst ick Urobilinogen - Not Available Mounika franklin [address], [place], [address], 09/01/2024 13:07:22 09/02/19 25 09/01/2024 urina lysis , dipst ick Protein trace Not Available [facility] [address], [place], [address], 09/01/2024 13:07:22 09/02/19 25 09/01/2024 urina lysis , dipst ick pH 8 Not Available [facility] [place] [address], [place], [address], 09/01/2024 13:07:22 09/02/19 25 09/01/2024 urina lysis , dipst ick Blood + Not Available [facility] [place] [address], [place], [address], 09/01/2024 13:07:22 09/02/19 25 09/01/2024 urina lysis , dipst ick Specific [place] 1.005 Not Available [facility] diana [address], [place], [address], 09/01/2024 13:07:22 09/02/19 25 09/01/2024 urina lysis , dipst ick Ketone - Not Available [place] [address], [place], [address], 09/01/2024 13:07:22 09/02/19 25 09/01/2024 urina lysis , dipst ick Bilirubin - Not [facility] [address], [place], [address], 09/01/2024 13:07:22 09/02/19 25 09/01/2024 urina lysis , dipst ick Appearance cloudy Not Available Alicja benedict [address], [place], [address], 09/01/2024 13:07:22 09/02/19 25 09/01/2024 urina lysis , dipst ick Color light yellow Not Available [place] [address], [place], [address], 09/01/2024 13:07:22 Result Notes None recorded. Problems Name Problem SNOMED Code Status Onset Date Resolution Date Notes Provider Name and Address Organization Details Recorded Time Chlamydi al infectio n 249519830 Completed +gonorrhe a tx 01/09 1pm at [facility] - rpt GC CT trich 05/[address] [place] [address] [facility] 2 15:37:24 growth restrict ion 69872143 Active 6% at 32w down from 10% at 28w. MFM- doing weekly NST and MCA dopplers [facility] 15:37:24 growth restrict ion [id number] Completed 6% at 32w down from 10% at 28w. MFM- doing weekly NST and MCA dopplers there on Mondays [place] [facility] 2 15:37:24 Teenage pregnanc y [id number] Active [address] [place] [address] [facility] 2 15:37:24 Teenage pregnanc y [id number] Completed [address] [place] [address] [facility] 2 15:37:24 Pregnanc y 30753148 Completed 202007/06/[address] [place] [address] [facility] 2 15:37:31 Problem Notes None recorded. Medical Equipment None Reported. Allergies No known drug allergies Medications Name Sig Start Date Stop Date Status Note LastModified by Organization Details LastModified Time amoxicillin 500 mg capsule TAKE 1 CAPSULE BY MOUTH EVERY 8 HOURS FOR 7 DAYS 01/20 completed Not Available Not Available Not Available Vitamin B-6 25 mg tablet TAKE 1 TABLET BY MOUTH EVERY DAY 05/02 completed Not Available Not Available Not Available azithromyci n 250 mg tablet 11/18 completed Not Available Not Available Not Available fluconazole 150 mg tablet TAKE 1 TABLET BY MOUTH NOW THEN REPEAT IN 48 HOURS active Not Available Not Available No t Available metronidazo le 0.75 % (37.5 mg/5 gram) vaginal gel INSERT 1 APPLICATO RFUL VAGINALLY EVERY DAY FOR 5 DAYS 04/26 completed Not Available Not Available Not Available ondansetron HCl 4 mg tablet TAKE 1 TABLET BY MOUTH EVERY 8 HOURS 05/02 completed Not Available Not Available Not Available metronidazo le 500 mg tablet TAKE 1 TABLET BY MOUTH EVERY 12 HOURS FOR 7 DAYS active Not Available Not Available No t Available amoxicillin 500 mg tablet TAKE 1 TABLET BY MOUTH EVERY 12 HOURS 11/18 completed Not Available Not Available Not Available ondansetron 8 mg disintegrat ing tablet DISSOLVE 1 TABLET ON THE TONGUE TWICE DAILY 05/02 completed Not Available Not Available Not Available amoxicillin 875 mg tablet TAKE 1 TABLET BY MOUTH EVERY 12 HOURS FOR 10 DAYS 01/08 completed Not Available Not Available Not Available benzonatate 100 mg capsule TAKE 1 CAPSULE BY MOUTH THREE TIMES DAILY NEEDED 11/18 completed Not Available Not Available Not Available doxycycline monohydrate 100 mg capsule TAKE 1 CAPSULE BY MOUTH TWICE DAILY WITH MEALS FOR 7 DAYS 08/21 completed Not Available Not Available Not Available cephalexin 500 mg capsule TAKE 1 CAPSULE BY MOUTH EVERY 12 HOURS 05/02 completed Not Available Not Available Not Available cephalexin 500 mg tablet Take 1 tablet 3 times a day by oral route for 7 days. 06/14 completed Not Available Not Available Not Available labetalol 100 mg tablet TAKE 1 TABLET BY MOUTH EVERY 12 HOURS active Not Available Not Available No t Available ondansetron 4 mg disintegrat ing tablet DISSOLVE 1 TABLET ON THE TONGUE EVERY 8 HOURS NEEDED FOR NAUSEA OR VOMITING 05/02 completed Not Available Not Available Not Available metoclopram mahesh 10 mg tablet TAKE 1 TABLET BY MOUTH DAILY 05/02 completed Not Available Not Available Not Available cyclobenzap rine 5 mg tablet TAKE 1 TABLET BY MOUTH EVERY NIGHT AT BEDTIME NEEDED 08/13 /2021 completed Not Available Not Available Not Available nitrofurant oin monohydrate /macrocryst als 100 mg capsule TAKE 1 CAPSULE BY MOUTH EVERY 12 HOURS FOR 5 DAYS 04/26 completed Not Available Not Available Not Available 08/07 completed Not Available Not Available Not Available ID NOW COVID-19 Test Kit TEST DIRECTED 11/18 completed Not Available Not Available Not Available Zafemy 150 mcg-35 mcg/24 hr transdermal patch APPLY 1 PATCH TOPICALLY TO THE SKIN EVERY WEEK DIRECTED 07/02 completed Not Available Not Available Not Available BinaxNOW COVID-19 Ag Self Test kit TEST DIRECTED TODAY 09/29 completed Not Available Not Available Not Available Vitals Date Recorded Body height Body mass index (BMI) [Percentile] Per age and sex Body mass index (BMI) Body weight Systolic And Diastolic Provider Name and Address Organization Details Last Updated DateTime 07/03/2023 157.48 cm 83 % 25.6 kg/m2 17441.9 3 g 124/86 mm[Hg] [facility] 4 16:17:36 Date Recorded Body height Body mass index (BMI) [Percentile] Per age and sex Body mass index (BMI) Body weight Systolic And Diastolic Provider Name and Address Organization Details Last Updated DateTime 08/22/2023 157.48 cm 89 % 27.4 kg/m2 39841.8 6 g 135/84 mm[Hg] [facility] 4 16:27:05 Date Recorded Body height Body mass index (BMI) Body mass index (BMI) [Percentile] Per age and sex Body weight Systolic And Diastolic Provider Name and Address Organization Details Last Updated DateTime 09/01/2024 157.48 cm 26.5 kg/m2 85 % 32633.8 9 g 156/104 mm[Hg] Anila Trujillo [facility] 5 12:56:14 Date Recorded Body height Body mass index (BMI) Body mass index (BMI) [Percentile] Per age and sex Body weight Systolic And Diastolic Provider Name and Address Organization Details Last Updated DateTime 01/09/2024 157.48 cm 27.6 kg/m2 89 % 12514.4 5 g 150/98 mm[Hg] Carla Dodd [facility] 4 10:51:31 Date Recorded Body height Body mass index (BMI) [Percentile] Per age and sex Body mass index (BMI) Body weight Systolic And Diastolic Systolic And Diastolic Provider Name and Address Organization Details Last Updated DateTime 4 157.48 cm 90 % 27.8 kg/m2 97845.0 4 g 140/95 mm[Hg] 142/91 mm[Hg] Anila Trujillo [facility] 4 16:34:01 Social History Question Answer Notes LastModified by Organizat ion Details LastModified Time Tobacco Smoking Status Never Smoker Chelsey Juliano garcia, [facility] 09/29/2021 15:15:27 Do You Have An Advance Directive? No [email or web address] Information n ot available 01/20/2021 Are You Blind Or Do You Have Difficulty Seeing? No [email or web address] Information n ot available 01/20/2021 What Is Your Level Of Caffeine Consumption? None Information not available 01/20/2021 How Much Tobacco Do You Chew? None [email or web address] Information not available 01/20/2021 In The 14 Days Before Symptom Onset, Have You Had Close Contact With A Laboratory-confirm ed COVID-19 While That Case Was Ill? No [email or web address] Information n ot available 01/20/2021 In The 14 Days Before Symptom Onset, Have You Had Close Contact With A Person Who Is Under Investigation For COVID-19 While That Person Was Ill? No [email or web address] Information not available 01/20/2021 Have You Been To An Area Known To Be High Risk For COVID-19? No [email or web address] Information not available 01/20/2021 Are You Deaf Or Do You Have Serious Difficulty Hearing? No [email or web address] Information not available 01/20/2021 What Type Of Diet Are You Following? REGULAR [email or web address] Information n ot available 01/20/2021 What Is The Highest Grade Or Level Of School You Have Completed Or The Highest Degree You Have Received? [id number] [email or web address] Information not available 01/20/2021 Are There Any Guns Present In Your Home? No [email or web address] Information not available 01/20/2021 Do You Use Protection During Sex? Usually [email or web address] Information not available 01/20/2021 Do You Use Your Seat Belt Or Car Seat Routinely? Yes [email or web address] Information not available 01/20/2021 Do You Have Smoke And Carbon Monoxide Detectors In Your Home? Yes Information not available 09/29/2021 How Much Tobacco Do You Smoke? No Information not available 01/20/2021 Do You Use Sunscreen Routinely? No [email or web address] Information not available 01/20/2021 Has Tobacco Cessation Counseling Been Provided? No Information not available 09/29/2021 Have You Used IV Drugs? No [email or web address] Information not available 01/20/2021 Do You Have Difficulty Walking Or Climbing Stairs? No Information not available 04/26/2022 Sex: Unknown Functional Status Question Answer Note LastModified by Organizat ion Details LastModified Time Do you use any illicit or recreational drugs? No Information not available 11/18/2020 Do you or have you ever used any other forms of tobacco or nicotine? No Information not available 09/29/2021 What is your level of alcohol consumption? None Information not available 11/18/2020 Are you able to walk? YESWOREST [email or web address] Information not available 01/20/2021 Are you able to care for yourself independently? Yes Information not available 04/26/2022 Do you have difficulty dressing, bathing, grooming, or toileting? No Information not available 04/26/2022 What is your exercise level? None [email or web address] Information not available 01/20/2021 Mental Status Question Answer Note LastModified by Organization D etails LastModified Time Do you feel stressed (tense, restless, nervous, or anxious, or unable to sleep at night)? [id number] Information not available 01/20/2021 Family History Relationship Description Onset Age of this Age Resolved Age Notes LastModified by Organization Details LastModified Time Father No current problems or disability [email or web address] Not available 01/20 12:19:57 Mother No current problems or disability Not available 01/20 12:19:57 Medical History Condition Response Allergies (Food, seasonal, environmental ) N Other N Breast Cancer N Drug/Latex Allergies/Reactions N Blood Transfusion N Dermatologic Disorders N Lung Disease N Defects or Inherited Disease N Breast Problem N Gestational Diabetes N Hematologic disorders N Anesthesia Complications N History of STI Y Deep Vein Thrombosis N Polycystic ovary syndrome N Anxiety Disorder N Autoimmune disease N Arthritis N Infertility N Polyps N Acid Reflux (GERD) N History of abnormal pap N Cancer N Stroke N Varicosities N Neurologic/Epilepsy N Endometriosis N High Cholesterol N Headaches N Fibromyalgia N Kidney Disease N Heart Problems N Kidney or Bladder Problems N Thyroid Problems N GI Problems N Eating Disorder N Anemia N Art (IVF or FET) N Psychiatric Illness N Ovarian Cancer N Diabetes N Pulmonary (TB, Asthma) N Hepatitis/Liver Disease N No Past Medical History Y Eczema N Urinary Tract Infection N Abuse/Domestic Violence N Asthma N Trauma/Violence N Depression/ depression N Heart Disease N Pre-Eclampsia N Hypertension N Osteoporosis N Thrombophilias N Gynecological History Statement/Question Response Date of Last Mammogram Flow Moderate Date of LMP 07/28/2024 N Was last menstrual period normal Y STIs/STDs Y Date of Last Colonoscopy Abnormal Pap N On BCP's at Conception? N HPV Vaccine N Colposcopy Duration of Flow (days) 5 Current Control Method None Age at First Child 16 Are cycles usually normal Y Frequency of Cycle (Q days) 27 Sexually Active? Y Menses Monthly Y Date of DEXA bone scan Age of first menstrual cycle 10 Date of Last Pap Smear Sexual Problems? N LMP Definite N Obstetrics History GPAL:G 1 P 1 0 0 1 Type Value Full Term 1 Living 1 Total 1 Past Encounters Encounter ID Performer Location Encounter Start Date Encounter Closed Date Diagnosis/Indication Diagnosis SNOMED-CT Code Diagnosis ICD10 Code Diagnosis Note [id number] Jacque Sanches MD [facility] [address] [address] 11/18/2020 10:31:01 11/18/2020 11:38:11 Urine test positive 130585025 Z32.01 Teenage 796441 001 O09.619 Acute cyst itis in , antepartum 0866393929 04 O23.11 [id number] Jacque Sanches MD [facility] [address],[place] [address] 11/18/2020 10:33:49 11/18/2020 12:03:17 [id number] Jacque Sanches MD [facility] [address] [address] 12/19/2020 10:37:11 12/19/2020 12:32:41 screening [id number] Z36.82 [id number] Jacque Sanches MD [facility] [address] [address] 12/19/2020 10:37:27 12/19/2020 12:08:09 Routine care 931139933 Z34.91 Teenage 925358 001 O09.619 [id number] Allyn Ogden [facility] [address] [address] 01/24/2021 10:38:10 01/24/2021 11:47:27 Routine care 818011794 Z34.92 [id number] MD Azeb Jefferson [address] [address] 02/20/2021 15:54:39 02/20/2021 18:04:59 screening for malformation 212299431 Z36.3 [id number] MD Azeb [facility] [address] [address] 02/20/2021 15:54:59 02/20/2021 18:10:33 Routine care 791659658 Z34.91 [id number] MD Azeb [facility] [address],[place] [address] 03/21/2021 16:36:28 03/21/2021 17:29:54 screening 750431914 Z36.2 [id number] MD Azeb [facility] [address] [address] 04/17/2021 09:27:30 04/17/2021 10:18:30 screening 681604733 Z36.2 O36.5930 Z3A.28 [id number] MD Elizabeth [place] [address],[place] [address] 04/17/2021 09:28:56 04/17/2021 10:58:42 Urinary tract infection in [id number] O23.13 [id number] [facility] [address],[place] [address] 05/02/2021 14:13:00 05/03/2021 13:56:09 [id number] [facility]St[facility] [address],[place] [address] 05/02/2021 14:15:27 05/02/2021 14:58:47 Routine care [id number] Z34.92 [id number] MD Azeb Jefferson [address],[place] [address] 05/16/2021 14:35:09 05/16/2021 15:48:52 Small for gestational age fetus [id number] O36.5999 Z3A.32 [id number] MD Azeb Jefferson [address],[place] [address] 05/16/2021 14:35:46 05/16/2021 15:48:09 growth restriction 90216406 O36.5999 Teenage [id number] 001 O09.619 [id number] MD Azeb Jefferson [address],[place] [address] 05/24/2021 13:31:47 05/24/2021 17:08:26 growth restriction 09291097 O36.5999 [id number] MD Azeb Jefferson [address],[place] [address] 05/24/2021 13:32:11 05/24/2021 14:50:09 Poor growth affecting management 966256727 O36.5999 Z3A.33 40203 MD Azeb Jefferson [address],[place] [address] 05/24/2021 13:32:21 05/24/2021 15:41:08 growth restriction 07831746 O36.5999 Teenage [id number] 001 O09.619 [id number] Jacque Sanches MD [facility] [address],[place] [address] 05/31/2021 15:10:59 05/31/2021 15:37:11 growth restriction 39549437 O36.5999 Teenage [id number] 001 O09.619 [id number] Jacque Sanches MD [facility] [address],[place] [address] 06/07/2021 14:30:43 06/07/2021 17:27:58 Teenage [id number] O09.619 grow th restriction 36593072 O36.5999 [id number] Jacque Sanches MD [facility] [address],[place] [address] 06/14/2021 14:27:10 06/14/2021 15:06:32 growth restriction 52561430 O36.5999 Teenage [id number] 001 O09.619 Acute cyst itis in , antepartum [id number] 04 O23.11 [id number] Jacque Sanches MD [facility] [address],[place] [address] 08/07/2021 15:20:17 08/07/2021 17:27:59 care [id number] Z39.2 Contracept ion care management 421324159 Z30.9 [id number] Stefanie Orlando [facility] [address],[place] [address] 09/29/2021 15:01:21 09/29/2021 15:31:18 Vaginitis 58755645 N76.0 Testing sentSuspec t yeast/bvBr east feedingRx sentWill contact if any further treatment required. Time spent in visit is a total of 15 mins with at least 50% of visit consisting of counseling and review of plan of care. [id number] Stefanie Orlando [facility] [address],[place] [address] 04/26/2022 14:08:32 04/26/2022 18:24:12 Contraception care management 099336361 Z30.9 Discussed all control options in great detail. Pt would like to start xulane patch. She is aware of the risks and benefits. Informed her it may not be as effective for contracept ion since her weight is over 198 lbs. She does not have any medical condition that is contraindi cated with the use of estrogen containing control. Pt will place the patch on the first saturday following the start of her period and then replace weekly x 2 (total of 3 patches over 3 weeks) and week 4 no patch. She is aware it is not effective for control the first month and may be less effective d/t her weight. She is also aware that she will need to check placement daily to ensure it has not come off. Encouraged use of condoms as the nuvaring does not protect against STD's. Will return in 3 months for med check. Consent was read and signed. Pt verbalized understand ing. H/O given for add'l home review.htt [email or web address] Time spent in visit is a total of 30 mins with at least 50% of visit consisting of counseling and review of plan of care. [id number] [facility] [address],[place] [address] 07/26/2022 13:56:50 07/26/2022 14:11:30 Contraception care management 832984019 Z30.9 Patient is here today for a medicaton check of control. She voices goals of therapy have been met with use of this therapy. She denies neg side effects. She is eating, drinking, sleeping well; moods are stable & periods are well regulated. Wishes to continue this method of BC. Appropriat e to continue this medication .Rx sent RF x 1yrCall if any issues or concerns. Time spent in visit is a total of 15 mins with at least 50% of visit consisting of counseling and review of plan of care. Venereal d isease screening 592570037 Z11.3 Urine std screen sent todayWill contact with results [id number] TIMOTHY Sage [facility] [address],[place] [address] 07/03/2023 16:08:57 07/03/2023 17:08:07 Vaginitis 41575398 N76.0 vaginitis panel sentSTI screen sentsuspec t BV - rx sent, r/b/a reviewedvu lvar care guidelines discussedR TC for WWE or sooner if needed Time spent in visit is a total of 20 mins with at least 50% of visit consisting of counseling and review of plan of care. Venereal d isease screening 931933987 Z11.3 [id number] TIMOTHY Sage [facility] [address] [address] 08/22/2023 16:22:34 08/22/2023 16:50:29 Chlamydial infection 644092921 A74.9 MAEVE sentsafe sexual practices discussedq uestions answered Time spent in visit is a total of 15 mins with at least 50% of visit consisting of counseling and review of plan of care. Venereal d isease screening 135827421 Z11.3 [id number] Tray Lopez MD [facility] [address],[place] [address] 01/09/2024 10:43:00 01/09/2024 11:42:36 Amenorrhea 53046388 N91.2 Discussed negative test result. Discussed that if periods continue to be irregular, or do not return within the next 2 months, to call office. Discussed methods of control to help regulate cycles and for contracept ion. Patient declines control at this time. Encouraged taking a PNV if trying to conceive. Venereal d isease screening 615595695 Z11.3 Discussed the various types of STDs, related symptoms and the potential consequenc es (including effects on fertility) of STD infections . Reviewed ways to limit exposure and prevention techniques . Vulvovaginitis 35392224 N76.0 Discussed empirical treatment with metronidaz ole for reported symptoms of vaginal discharge and odor. Discussed vulvar care guidelines in addition to laundry/sk in irritants to avoid. Elevated blood-pressure reading without diagnosis of hypertension 145272795 R03.0 Discussed elevated blood pressure readings today in office. Reviewed HTN guidelines , diagnosis, prevention , and treatment. Provided patient with PCP list and encouraged patient to get establishe d with a PCP. Recommende d that patient RTO in one week for BP check. [id number] Tray Lopez MD [facility] [address],[place] [address] 01/16/2024 16:15:45 01/16/2024 17:03:50 Hypertensive disorder 39002218 I10 Discussed elevated blood pressure with this patient. Strongly encouraged her to get a primary care doctor for the evaluation and treatment of hypertensi on an adolescent /Adult. She was given a list primary care doctors. [id number] Tray Lopez MD [facility] [address],[place] [address] 09/01/2024 12:47:06 09/01/2024 13:33:46 Acute vaginitis 71775358 N76.0 Discussed empirical treatment with fluconazol e for suspected yeast infection based on reported symptoms and physical exam findings.D iscussed vulvar care guidelines in addition to laundry/sk in irritants to avoid.Vagi nitis panel sent to r/o yeast/bv/t juli. Venereal d isease screening 576974110 Z11.3 Pt requested STI testing.Di scussed the various types of STDs, related symptoms and the potential consequenc es (including effects on fertility) of STD infections . Reviewed ways to limit exposure and prevention techniques . Urinary sy stem finding 023224065 R39.9 Patient c/o dysuria. Urine dipstick positive for leukocytes and blood.Will send urine culture and await results prior to treatment. Essential hypertension 70863334 I10 Discussed that BP was elevated today.Mandie be has history of hypertensi on, sees PCP for management with labetalol. Patient states that she has not taken her medication recently due to drug cost.Recom mended following up with PCP and also using a [employer] card for cost savings.Di scussed elevated BP readings today.Mandie ent denied hx of HTN.Pt denied SOB, chest pain, dizziness, palpitatio ns, severe headache. Discussed that if pt experience s these symptoms with elevated BP then she needs to go to the ER. Menstrual period late 84 071071 N92.6 Health Concerns Section Related Observation LastModified by Organization Detai ls LastModified Time None Recorded Concern Status LastModified by Organization Details LastModified Time None Recorded Advance Directives Directive N: Payers Insurance Date Sequence Insurance Name Policy Number Policy Banuelos Covered Member ID Banuelos Member ID Guarantor Name 08/27/2024 1 *SELF PAY* Botello 09/01/2024 1 [place] [facility] Mounika Austen [place] [id number] Katherine Garcia 09/01/2024 1 [facility] [place] [facility] [place] [id number] Mounika Ivelisse [id number] Katherine Garcia 09/01/2024 1 [place] [facility] Mounika Ivelisse [id number] Katherine Garcia 09/01/2024 1 [facility] (MEDICAID HMO) [id number] Mounika Ivelisse [id number] Katherine Garcia OBGyn Episode Ob Episode Information Episode Created Date Number of Fetuses Patient Bloodtype Patient rh Status Prepregnancy Weight lbs Domestic Partner Domestic Partner Phone Father Name Pricing Supervisor Status 12/20/19 21 1 O Positive 111 CLOSED Fetus Data First Name Last Name Admitted to NICU Weight (g) Sex Living Outcome Pediatric Complications Fetus ID Race Codes Race Delivery Type 2211.26 1 M true Full Term 11676 Vaginal Delivery Problems Problem Notes Sanches pt!!06/12 MARSHALL Perez sta jacy they are seeing cephalization on u/s, will repeat NST Saturday, 37 wk delivery. Pt and gma aware. IOL scheduled for 06/19/21. Problem Name Start Date End Date Resolution Snomed Code Not e Teenage 11/18/2020 [id number] Chlamydial infection [id number] +gonorrhea tx 01/09 1pm at [facility] - rpt GC CT trich 05/16 growth restriction 18562645 6% at 32w down from 10% at 28w. MFM- doing weekly NST and MCA dopplers there on Mondays Juanito Calculation Initial Juanito Date Initial Exam Date Initial Exam Provider Initial Ultrasound Date Last Menstrual Period Date Ultra Sound Weeks Gestation 07/10/2021 12/19/2020 11/18/2020 09/13/2020 6 Eighteen To Twenty Week Juanito Update Ultra Sound Date Fundal Height At Umbil Quickening Date Ultra Sound Latest Weeks Gestation Final Juanito Confirmed By Final Juanito Confirmed Date Final Juanito Date Ultra Sound Latest Days Gestation 0 [email or web address] 12/19/2020 07/11/19 22 0 Pre-yelena Flowsheet Flowsheet Date 12/19/2020 Richards Score Blood Edema Fundus Height Fundus Units Glucose Ketones Leukocytes Nitrite Labor Signs Protein Cervic Dilation Cervic Effacement Cervic Station Type Weight in lbs Pre/Post Dialysis Refused BP Diastolic BP Location Tested BP Systolic BP Type Fetus Heart Rate Present Fetus Movement Comments Flowsheet Date 12/19/2020 Richards Score Blood Edema Fundus Height Fundus Units Glucose Ketones Leukocytes Nitrite Labor Signs Protein Cervic Dilation Cervic Effacement Cervic Station neg none trace Type Weight in lbs Pre/Post Dialysis Refused Weight 115.950662992647 BP Diastolic BP Location Tested BP Systolic BP Type 65 105 Fetus Heart Rate Present Fetus Movement A No Comments Mounika is a 15yo G1 for pr enatal care. NO contributory history. Doing better- no longer needing antiemetics. Completed her amox for UTI, denies any urinary sx. PNL and NIPT today. Next visit will be a week late because travelling to [place]. Precautions discussed. US pending today. Flowsheet Date 01/24/2021 Richards Score Blood Edema Fundus Height Fundus Units Glucose Ketones Leukocytes Nitrite Labor Signs Protein Cervic Dilation Cervic Effacement Cervic Station none trace Type Weight in lbs Pre/Post Dialysis Refused Weight 118.013175452688 BP Diastolic BP Location Tested BP Systolic BP Type 65 109 Fetus Heart Rate Present A 149 Fetus Movement A Yes Comments Doing well. Having a boy! N& V has resolved and energy improved. Plan to return in 4 weeks for routine ob visit and baseline anatomy. Encouraged flu and covid vaccines. Acog recommendation discussed. Flowsheet Date 02/20/2021 Richards Score Blood Edema Fundus Height Fundus Units Glucose Ketones Leukocytes Nitrite Labor Signs Protein Cervic Dilation Cervic Effacement Cervic Station Type Weight in lbs Pre/Post Dialysis Refused BP Diastolic BP Location Tested BP Systolic BP Type Fetus Heart Rate Present Fetus Movement Comments Flowsheet Date 02/20/2021 Richards Score Blood Edema Fundus Height Fundus Units Glucose Ketones Leukocytes Nitrite Labor Signs Protein Cervic Dilation Cervic Effacement Cervic Station neg none trace Type Weight in lbs Pre/Post Dialysis Refused Weight 124.571579410079 BP Diastolic BP Location Tested BP Systolic BP Type 63 106 Fetus Heart Rate Present A 140 Fetus Movement A Yes Comments Doing well except Saturday was at other hospital for UTI. Taking keflex and the pain is much better. US today anatomy wnl except heart views and lat ventricles not seen- repeat US 4 weeks. Repeat STD testing in 3rd tri. Flowsheet Date 03/21/2021 Richards Score Blood Edema Fundus Height Fundus Units Glucose Ketones Leukocytes Nitrite Labor Signs Protein Cervic Dilation Cervic Effacement Cervic Station Type Weight in lbs Pre/Post Dialysis Refused BP Diastolic BP Location Tested BP Systolic BP Type Fetus Heart Rate Present Fetus Movement Comments Flowsheet Date 04/17/2021 Richards Score Blood Edema Fundus Height Fundus Units Glucose Ketones Leukocytes Nitrite Labor Signs Protein Cervic Dilation Cervic Effacement Cervic Station Type Weight in lbs Pre/Post Dialysis Refused BP Diastolic BP Location Tested BP Systolic BP Type Fetus Heart Rate Present Fetus Movement Comments Flowsheet Date 04/17/2021 Richards Score Blood Edema Fundus Height Fundus Units Glucose Ketones Leukocytes Nitrite Labor Signs Protein Cervic Dilation Cervic Effacement Cervic Station neg none 26 3+ trace Type Weight in lbs Pre/Post Dialysis Refused Weight 119.244259932997 BP Diastolic BP Location Tested BP Systolic BP Type 74 118 Fetus Heart Rate Present A 150 Fetus Movement A Yes Comments Doing ok except urinary freq uency and slight back pain, like she feels when has UTI. UA with leuks and nitrites, macrobid sent, pyelo precautions given. Discussed and encouraged flu, Tdap, COVID vaccine. she has NOT had covid this preg that she knows of. US today anatomy now complete but growth 10%. NOrmal dopplers. Repeat growth 4 weeks. Repeat STD testing next visit. GCT today. Flowsheet Date 05/02/2021 Richards Score Blood Edema Fundus Height Fundus Units Glucose Ketones Leukocytes Nitrite Labor Signs Protein Cervic Dilation Cervic Effacement Cervic Station Type Weight in lbs Pre/Post Dialysis Refused BP Diastolic BP Location Tested BP Systolic BP Type Fetus Heart Rate Present Fetus Movement Comments Flowsheet Date 05/02/2021 Richards Score Blood Edema Fundus Height Fundus Units Glucose Ketones Leukocytes Nitrite Labor Signs Protein Cervic Dilation Cervic Effacement Cervic Station none 27 none trace Type Weight in lbs Pre/Post Dialysis Refused Weight 119.482887062009 BP Diastolic BP Location Tested BP Systolic BP Type 79 124 Fetus Heart Rate Present A 147 Fetus Movement A Yes Comments Doing well. Urinary symptoms resolved. Encouraged tdap, flu and covid vaccines. Planning epidural. Dr Reynolds for peds. Encouraged classes. Measuring less than dates. Does have follow up growth in 2 weeks. Pt feels she has a good appetite and eats enough. She is not a fan of meats. Discussed increased calorie intake and other ways to increase her protein. Flowsheet Date 05/16/2021 Richards Score Blood Edema Fundus Height Fundus Units Glucose Ketones Leukocytes Nitrite Labor Signs Protein Cervic Dilation Cervic Effacement Cervic Station Type Weight in lbs Pre/Post Dialysis Refused BP Diastolic BP Location Tested BP Systolic BP Type Fetus Heart Rate Present Fetus Movement Comments Flowsheet Date 05/16/2021 Richards Score Blood Edema Fundus Height Fundus Units Glucose Ketones Leukocytes Nitrite Labor Signs Protein Cervic Dilation Cervic Effacement Cervic Station neg none 28 none trace Type Weight in lbs Pre/Post Dialysis Refused Weight 120.710024010695 BP Diastolic BP Location Tested BP Systolic BP Type 68 126 Fetus Heart Rate Present A 155 Fetus Movement A Yes Comments Doing well. Reports eating w ell all the time. US today EFW 5.8% down from 9.8%. SHAWNA 11. Normal dopplers. Will get MFM consult. Will start weekly NST and SHAWNA. Discussed IUGR, kick counts. Encouraged Tdap, will get at health dept. Repeat urine culture and stds today. Flowsheet Date 05/24/2021 Richards Score Blood Edema Fundus Height Fundus Units Glucose Ketones Leukocytes Nitrite Labor Signs Protein Cervic Dilation Cervic Effacement Cervic Station Type Weight in lbs Pre/Post Dialysis Refused BP Diastolic BP Location Tested BP Systolic BP Type Fetus Heart Rate Present Fetus Movement Comments Flowsheet Date 05/24/2021 Richards Score Blood Edema Fundus Height Fundus Units Glucose Ketones Leukocytes Nitrite Labor Signs Protein Cervic Dilation Cervic Effacement Cervic Station Type Weight in lbs Pre/Post Dialysis Refused BP Diastolic BP Location Tested BP Systolic BP Type Fetus Heart Rate Present Fetus Movement Comments Flowsheet Date 05/24/2021 Richards Score Blood Edema Fundus Height Fundus Units Glucose Ketones Leukocytes Nitrite Labor Signs Protein Cervic Dilation Cervic Effacement Cervic Station neg none 29 none trace Type Weight in lbs Pre/Post Dialysis Refused Weight 119.295625912589 BP Diastolic BP Location Tested BP Systolic BP Type 75 117 Fetus Heart Rate Present A 140 Fetus Movement A Yes Comments Doing ok. Good FM. NST react junito, BPP 11/13, normal dopplers. Has not heard from [facility] yet re scheduling. Dx with UTI saturday, taking abx. Will repeat UC next visit. Doing Tdap on Saturday. Will repeat STD testing when we do GBS, discussed. Discussed delivery by 39 for IUGR. Flowsheet Date 05/31/2021 Richards Score Blood Edema Fundus Height Fundus Units Glucose Ketones Leukocytes Nitrite Labor Signs Protein Cervic Dilation Cervic Effacement Cervic Station neg none 29 none trace Type Weight in lbs Pre/Post Dialysis Refused Weight 125.876978922835 BP Diastolic BP Location Tested BP Systolic BP Type 80 114 Fetus Heart Rate Present A 135 Fetus Movement A Yes Comments Doing well. Great FM. Doing weekly MCA dopplers and NST with [facility], growth in 3 more weeks. Precautions given. FU weekly. Flowsheet Date 06/07/2021 Richards Score Blood Edema Fundus Height Fundus Units Glucose Ketones Leukocytes Nitrite Labor Signs Protein Cervic Dilation Cervic Effacement Cervic Station neg none 28 trace trace Type Weight in lbs Pre/Post Dialysis Refused Weight 127.843088128448 BP Diastolic BP Location Tested BP Systolic BP Type 76 116 Fetus Heart Rate Present A 150 Fetus Movement A Yes Comments Doing well. Tons of FM. Doin g monitoring at [facility]. Repeat UC today- no sx. GBS next week. Discussed IOL at 39w if not indicated before. Flowsheet Date 06/14/2021 Richards Score Blood Edema Fundus Height Fundus Units Glucose Ketones Leukocytes Nitrite Labor Signs Protein Cervic Dilation Cervic Effacement Cervic Station neg none 29 none 3+ 1cm 30% -2 Type Weight in lbs Pre/Post Dialysis Refused Weight 127.820521405846 BP Diastolic BP Location Tested BP Systolic BP Type 81 128 Fetus Heart Rate Present A 155 Fetus Movement A Yes Comments IOl per [facility] on Saturday at 37w due to IUGR with cephalization. Cervix 1cm and posterior, but soft and head low in pelvis. likely cervidil, discussed. 3+ protein today, normal BP, minimal edema. Urine cloudy with blood and leuks also, will treat with macrobid even though no sx. She has had recurrent UTI this . GBS done and discussed. Discussed IOL process. Menstrual History Last Menstrual Date Menses Monthly On Bcp Conception Prior Menses Frequency Hcg Plus Date Menarche Onset Age 0609/13/2020 Genetic Screening And Infection History Question Response Note Mental Retardation/Autism false Patient's Age Will Be 35 Years Or Older At Estim ated Date of Delivery false Thalassemia (Maori, Bahraini, Mediterranean, Or Background): MCV < 80 false Neural Tube Defect (Meningomyelocele, Spina Bifi da, Or Anencephaly) false Congenital Heart Defect false Down Syndrome false Rickey-Sachs (eg, Druze, Cajun, Filipino-Chugach) f alse Mike Disease false Sickle Cell Disease Or Trait () false Hemophilia Or Other Blood Disorders false Muscular Dystrophy false Cystic Fibrosis false Magnolia's Chorea false Intellectual Disability/Autism false If Yes, Was Person Tested For Fragile X? false Other Inherited Genetic Or Chromosomal Disorder false Maternal Metabolic Disorder (eg, Type 1 Diabetes , PKU) false Patient Or Baby's Father Had A Child With Defects Not Listed Above false Recurrent Loss, Or A Stillbirth false Medications (including Suppl ements, Vitamins, Herbs, OTC Drugs), Illicit/Recreational Drugs, Alcohol false If Yes, Agent(s) And Strength/Dosage false Any Other Genetic History false Live With Someone With TB Or Exposed To TB false Patient Or Partner Has History Of Genital Herpes false Rash Or Viral Illness Since Last Menstrual Perio d false History Of STD, Gonorrhea, Chlamydia, HPV, Syphi lis false Other Infection History false History of HIV false History of Hepatitis false Prior GBS-infected child false Hemoglobinopathy Or Carrier false Other Structural Defect false Recent Travel History Outside of Country false Delivery Information Delivery Date Delivery Type Labor Anesthesia Weeks Gestation Incision Type Labor Labor Length Hrs Delivered By Post Complications Tubal Sterilization Discharge Date Comments 2 Induce d Regional-Ep idural 37.1 false Jacque Sanches MD IUGR Discharge Information Feeding Method Contraceptive Method Maternal HG B and HCT Levels
--- OUTSIDE RECORDS SUMMARY | 2024-11-03 14:52 | XMS_ITS | Continuity of Care Document ---
Author Organization [facility] Address [address] [place] [address] [place] [address] Phone Care Team Providers Care Trip Rider Name Role Phone Ion Escobar MD Unavailable [...] Copied on Encounter OFFICE/OUTPA TIENT VISIT, EST [facility], [address], [place], [place], [id number], tel:[phone] [facility] neck pain1 (chief complaint) Cervicalgia 1 Shawn Lemon. [address], [place], [place], [id number] , [place]. tel:[phone] Referring Provider: Ion Escobar, [address], [place], [place], [id number]. tel:[phone] OFFICE/OUTPA TIENT VISIT, [facility], [address], [place], [place], [address], tel:[phone] [facility] cough1 (chief complaint) Acute pharyngitisAcute upper respiratory infection, unspecified 1 Shawn Lemon. [address], [place], [place], [address] , [place]. [phone] Referring Provider: Molly Perkins [address], [place], [place], [id number]. tel:[phone] PREV VISIT, EST, AGE 12-17 [facility], [address], [place], [place], [id number], [place] tel:[phone] [facility] Medicine physical (chief complaint) Encounter for routine child health examination without abnormal findings 1 Shawn Lemon. [address], [place], [place], [address] , [place]. [phone] Referring Provider: Molly Perkins [address], [place], [place], [address]. tel:[phone] OFFICE/OUTPA TIENT VISIT, EST [facility], [address], [place], [place], [address], [place] tel:[phone] [facility] anxiety1 (chief complaint) insomnia1 (chief complaint) cough1 (chief complaint) Generalized Anxiety DisorderInsomniaAcu te upper respiratory infection, unspecified 0 Shawn Lemon. [address], [place], [place], [address] , [place]. tel:[phone] Referring Provider: Molly Perkins [address], [place], [place], [address]. tel:[phone] OFFICE/OUTPA TIENT VISIT, EST [facility], [address], [place], [place], [address], [place] tel:[phone] [facility] anxiety1 (chief complaint) fatigue1 (chief complaint) FatigueInsomniaGene ralized Anxiety Disorder 9 Shawn Lemon. [address], [place], [place], [address] , [place]. tel:[phone] Referring Provider: Molly Perkins [address], [place], [place], [address]. tel:[phone] PREV VISIT, NEW, AGE 12-17 [facility], [address], [place], [place], [address], tel:[phone] [facility] Medicine PHysical (chief complaint) Encntr for routine child health exam w/o abnormal findings 9 Shawn Lemon. [address], [facility] [address], [place], [place], [address] , [place]. tel:[phone] Referring Provider: Molly [address], [place], [place], [address]. tel:[phone] Family History Family Member Type Diagnosis Age [...] Mental Status Date Cognitive Assessment Orientation - [place] ed to time, place, person, situation.
--- NOTE | 2024-11-03 14:53 | ED_ITS ---
HPI - Extremity Injury (Upper) General Chief Complaint: Extremity Injury, Upper Stated Complaint: right ring finger nail injury Time Seen by Provider: 11/03/24 15:22 Focused HPI: 19 y/o F with no PMHx presents to the emergency department with grandmother at bedside for right 4th fingernail avulsion that occurred prior to arrival. Patient states she was playing with her cousin when her right 4th fingernail got caught on something and reactive. Patient does have acrylic nails. Tdap is up-to-date per family. No other injuries. GENERAL: Well-appearing, well-nourished, and in no acute distress. HEAD: Normocephalic, atraumatic. CHEST: Clear to auscultation. ?No respiratory distress. HEART: Regular rate and rhythm.? NEURO: ?Alert and oriented x3. Patient screened in triage and initial orders placed.? ?Additional care and disposition to be based upon?diagnostic testing and treatment. History of Present Illness HPI narrative: Agree with the above triage note. Related Data Allergies Allergy/AdvReac Type Severity Reaction Status Date / Time No Known Allergies Allergy Verified 08/17/24 15:51 Review of Systems Review of Systems: All systems reviewed & are unremarkable except as noted in HPI and below PMFSH Past Medical History Medical History Hypertension Surgical History Surgical History No pertinent past surgical history Family History Family History Mother No pertinent past medical history Social History Social History Smoking status: Current every day smoker Tobacco type: e-cigarettes/vaping Alcohol intake: current Drinks per week: 4 Alcohol use details: 1-4 alcoholic beverages per week. Substance use: never Do You Feel Safe in your Home?: Yes Lack of Transportation: No Lack of Food: Never True Current Housing: I Have Housing Concerned About Future Housing: No Difficulty Paying Gas/Electric Bills: No Difficulty Paying for Meds: No Currently Unemployed: No Education: High School Diploma/GED Difficulty w/ Childcare or Family Care: No Living arrangements: with family Gender identity (if verbalized by the patient): Female Sexual Orientation (if Verbalized by the Patient): Straight or Heterosexual Spiritual care concerns: No Exam Narrative: GENERAL: Tearful, anxious appearing HEAD: Normocephalic, atraumatic. EYES: EOMI. ENT: Nares clear, no rhinorrhea or epistaxis. Mucous membranes moist. NECK: Supple. CHEST: Clear to auscultation. No respiratory distress. HEART: Regular rate and rhythm. No murmur heard. Normal peripheral pulses. EXTREMITIES: RUE: 4th digit with nail avulsed. Nail is acrylic. Nail is still attached to 75% of the proximal nail fold with the corner of the nail avulsed out of the proximal nail fold. Mild bleeding to the nail bed with no laceration. Full ROM of finger. Cap refill <2. Sensation intact SKIN: Warm, dry, no rash. NEURO: No focal deficits. Alert and oriented x3 Course Vital Signs Vital signs: Vital Signs Temperature 98 F 11/03/24 14:48 Pulse Rate 125 H 11/03/24 14:48 Respiratory Rate 18 11/03/24 14:48 Blood Pressure 139/91 H 11/03/24 14:48 Pulse Oximetry 97 11/03/24 14:48 Oxygen Delivery Room Air 11/03/24 14:48 Temperature 98 F 11/03/24 14:48 Pulse Rate 78 11/03/24 16:00 Respiratory Rate 19 11/03/24 16:00 Blood Pressure 73/57 L 11/03/24 16:00 Pulse Oximetry 95 11/03/24 16:00 Oxygen Delivery Room Air 11/03/24 14:48 MDM - Extremity Injury (Upper) MDM Narrative Medical decision making narrative: 19-year-old female presents to the emergency department for right 4th digit nail injury. Patient was playing with her cousin when she avulsed her right 4th nail. She does have acrylic nails and placed. Triage vitals with tachycardia of 125 and elevated blood pressure. Patient is tearful and anxious appearing. Exam is significant for a 4th digit nail avulsion. The nail is still attached to about 75% of the proximal nail fold with a corner of the nail dislodged from the proximal nail fold. No nail bed lacerations. X-rays obtained which show no acute osseous findings. Digital block performed and the corner of the nail was placed back into the proximal nail fold to splint open the nail matrix. Unfortunately unable to suture the corner of the nail into the nail matrix due to acrylic nails. Patient was placed in a bulky dressing advised to follow-up with her PCP. She was given strict ED return precautions. She is agreeable with the plan verbalized understanding. Discharged in stable condition. Discharge Plan Discharge Clinical Impression: Avulsion of nail Patient Disposition: Home Condition: Stable Instructions: Antibiotic Form, Nail Avulsion (ED) Additional Instructions: Please keep the area clean and dry. Wear a bandage to protect her nail as discussed. In a couple of weeks when the nail starts to grow out you can cut off the old acrylic nail. Follow-up closely with her primary care provider. Return to the emergency department if you develop any new or worsening symptoms. Patient Language: Croatian Prescriptions: No Action labetalol 100 mg tablet 100 mg PO Q12H Qty: 180 1RF Follow-up/Referrals: Millie gA APRN [Primary Care Provider] -
--- OUTSIDE RECORDS SUMMARY | 2024-11-03 14:53 | XMS_ITS | Clinical Summary ---
Author Organization [facility] Address [address] [place] [address] Care Team Providers Care Deicer Repairer Name Role Phone Ady Reynolds MD Primary Care Provider [phone] Source Comments [facility],non-owned Affiliates and Associated Physician Practices is amultiple site organization consisting of ambulatory clinics and hospital sitesin [place], [place], [place] and [place]. This disclosure is being madepursuant to the Care Everywhere program and may not contain all information available regarding this patient. Last updated 17.[facility] Allergies No known active allergies Medications * This document contains information received from the source organization and may not represent a complete record from that organization. * Be aware that medications may not be up to date on this document. Alwaysverify current medications with the patient. naproxen (NAPROSYN) 500 MG tablet Take 1 tablet by mouth 2 times daily as needed for Pain 30 tablet 8 Active Additional Information Patient not taking.Reported on 10/05/2024 ARIPiprazole (Abilify) 2 MG tabletIndicati ons:Mood Disorder Take 1 (one) tablet by mouth once daily Reasons: Mood Disorder 30 tablet 5 Active sertraline (Zoloft) 50 MG tabletIndicati ons:Major Depressive Disorder,Postt raumatic Stress Disorder Take 1 (one) tablet by mouth once daily Reasons: Major Depressive Disorder, Posttraumatic Stress Disorder 30 tablet 5 Active naltrexone (Revia) 50 MG tabletIndicati ons:Alcohol Use Disorder Take 1 (one) tablet by mouth once daily Reasons: Abuse or Misuse of Alcohol 30 tablet 5 Active Active Problems Problem Noted Date Diagnosed Date SGA (small for gestational a ge), , affecting care of mother, antepartum, third trimester, other fetus 05/29/2021 Supervision of normal first teen 05/29 Encounters * This document contains information received from the source organization and may not represent a complete record from that organization. 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 Gender Identity Not on file Sexual Orientation Not on file Last Filed Vital Signs Vital Sign Reading Time Taken Comments Blood Pressure 154/99 10/05/2024 11:24 AM CDT Pulse 105 10/05/2024 11:24 AM CDT Temperature 36.8 C (98.2 F) 10/05/2024 11:24 AM CDT Respiratory Rate 18 10/05/2024 11:24 AM CDT Oxygen Saturation - - Inhaled Oxygen Concentration - - Weight 62.6 kg (138 lb) 10/05/2024 11:24 AM CDT Height 157.5 cm (5' 2) 10/05/2024 11:24 AM CDT Body Mass Index 25.24 10/05/2024 11:24 AM CDT Plan of Treatment Health Maintenance Due Date Last Done Comments HPV VACCINE (1 - 3-dose series) 08/25/2019 MENINGOCOCCAL (Group B) VACCINE SHARED DECISION-MAKING (1 of 2 - Standard) 2020 CHLAMYDIA/GONORRHEA SCREENING 06/14/2022 06/14/2021, 05/16/2021 HEPATITIS C SCREENING 08/20/2022 DTAP/TDAP/TD VACCINES (1 - Tdap) 08/25/2023 HEPATITIS B VACCINE (1 of 3 - 19+ 3-dose series) 08/25/2023 COVID-19 VACCINE (2023- season) 2023 DEPRESSION SCREENING 04/08/2024 INFLUENZA VACCINE (#1) 2024 8, 04/30/2017, 03/14/2016, Additional history exists ZOSTER VACCINE (1 of 2) 2054 HIV SCREENING Completed 04/17/2021 HIB VACCINE Aged Out No longer eligi ble based on patient's age to complete this topic MENINGOCOCCAL GROUPS A/C/Y/W VACCINE Aged Out No longer eligible based on patient's age to complete this topic PNEUMOCOCCAL VACCINE Aged Out No long er eligible based on patient's age to complete this topic Insurance MEDICAID - [place] [facility] Care Teams Deicer Repairer Relationship Specialty Start Date End Date Ady Reynolds MD [address] [facility] [address] [address] [address] PCP - General Pediatrics 08/31/14
--- OUTSIDE RECORDS SUMMARY | 2024-11-03 14:53 | XMS_ITS | Clinical Summary ---
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
[2024-11-03 16:24] VITALS: BP 124/87; PULSE 67; RESP 20; O2SAT 95
[2024-11-03 16:44] VITALS: BP 128/86; PULSE 91; RESP 16; TEMP 36.7; O2SAT 97
== END 2024-11-03 16:44 | disposition home or self-care (01) ==
PROVIDERS: Emergency Provider Physician Assistant; PCP Nurse Practitioner Family
DX: S61.304A Unspecified open wound of right ring finger with damage to nail, initial encounter (principal); F17.290 Nicotine dependence, other tobacco product, uncomplicated; I10 Essential (primary) hypertension; Y29.XXXA Contact with blunt object, undetermined intent, initial encounter
CPT/HCPCS: 11730; 73140; 99283; J2003